=== PATIENT | female | born 1970 | race Caucasian/White ===

== ENCOUNTER 2020-03-07 10:32 | Emergency (ER) | payer SELFPAY ==
[2020-03-07] MEDS ORDERED: HYDROCODONE/APAP 10/325 TAB ONE (11:04)
--- NOTE | 2020-03-07 11:50 | RAD REPORT ---
EXAM DESCRIPTION: RAD - Forearm Left - 03/07/2020 11:40 am CLINICAL HISTORY: Left forearm pain status post injury FINDINGS: A mildly displaced distal radial fracture. Avulsion fracture ulnar styloid process No dislocation
--- NOTE | 2020-03-07 11:51 | RAD REPORT ---
EXAM DESCRIPTION: RAD -Hand Left 3 View - 03/07/2020 11:40 am CLINICAL HISTORY: Left hand pain status post injury FINDINGS: A mildly displaced distal radial fracture. Avulsion fracture ulnar styloid process No dislocation
[2020-03-07] MEDS ORDERED: FENTANYL CITR 100 MCG/2 ML ONE ×2 (13:11→13:14)
[2020-03-07 13:50] VITALS: BP 198/98; O2SAT 99
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
== END 2020-03-07 13:35 | disposition home or self-care (01) ==
LOC: ER 10:32
PROC: 2W3DX1Z Immobilization of Left Lower Arm using Splint (ICD-10-PCS; principal; 2020-03-07)
DX: S52.612A Displaced fracture of left ulna styloid process, initial encounter for closed fracture (principal); S52.502A Unspecified fracture of the lower end of left radius, initial encounter for closed fracture; W19.XXXA Unspecified fall, initial encounter; Y93.9 Activity, unspecified; Y92.89 Other specified places as the place of occurrence of the external cause; Z88.6 Allergy status to analgesic agent; F17.210 Nicotine dependence, cigarettes, uncomplicated
CPT/HCPCS: 96372; 99284; J3010

== ENCOUNTER 2023-09-22 04:45 | Inpatient (IN) | payer SELFPAY ==
--- OUTSIDE RECORDS SUMMARY | 2023-09-22 04:48 | XMS REPORT | Continuity of Care Document ---
Author Name Unknown Address [address] [place] [address] [address] [employer] Address [address] [place] [address] 1 [address] [place] [address] Care Team Providers Care Jr. Java Developer Name Role Phone Unavailable Unavailable Unavailable Encounters Start Date/Time End Date/Time Encounter Type Admission Type Attending Clinicians Care Facility Care Department Encounter ID Source 2023-08-09 12:53:09 2023-08-09 12:53:09 Outpatient [facility] [id number] Jonathan Rae 2023-06-19 10:14:18 2023-06-19 10:14:18 Outpatient [facility] [id number] Jonathan Rae
[2023-09-22] MEDS ORDERED: MAGNESIUM SULFATE 1 gm IVPB 1 GM/100 ML BAG IV ONE (04:58)
[2023-09-22] MEDS ORDERED: LEVALBUTEROL 1.25 MG/3 ML NEB ONE (04:58)
[2023-09-22] MEDS ORDERED: IPRATROPIUM BROM 0.5MG/2.5ML ONE (04:58)
[2023-09-22] MEDS ORDERED: METHYLPREDNISOLONE 125 MG INJ ONE (04:58)
[2023-09-22 05:40] LABS: Absolute Lymphocytes (CBC) 1.7 K/uL (0.7-4.9); Hematocrit 58.3 % (36.0-45.0); Lymphocytes % 19.4 % (15.3-44.8); MCV 112.7 fL (80-100); MPV 7.8 fL (7.6-11.3); Platelets 187 thou/uL (152-406); RBC Red Blood Cell Count 5.17 M/uL (3.86-4.86)
[2023-09-22 05:41] LABS: SARS-CoV-2 Antigen Rapid Res Negative (Negative)
[2023-09-22 05:44] LABS: Protime INR 0.87
[2023-09-22 05:48] LABS: Albumin 3.7 g/dL (3.4-5.0); Bilirubin Direct 0.3 mg/dL (0-0.2); Bilirubin Indirect, Calculated 0.4 mg/dL (0.2-0.8); Bilirubin Total 0.7 mg/dL (0.2-1.0); Magnesium 1.7 mg/dL (1.6-2.4); Potassium 3.8 mEq/L (3.5-5.1); Protein, Total 7.8 g/dL (6.4-8.2); Troponin High Sensitivity 31.3 pg/mL (<58.9)
[2023-09-22] MEDS ORDERED: AZITHROMYCIN 500 MG INJ IVPB ONE (06:48)
[2023-09-22] MEDS ORDERED: NA CHLORIDE 0.9% 250 ML ONE (06:48)
--- NOTE | 2023-09-22 06:48 | EDPHYS ---
Physician Documentation [facility] Name: Kelsea Petty Age: 52 yrs Sex: Female : 1970 Arrival Date: 09/22/2023 Time: 04:45 Bed 8 Private MD: ED Physician Reynold Armendariz HPI: 09/22 05:14 This 52 yrs old Female presents to ER via EMS with complaints of sob. rn 05:14 The patient has shortness of breath at rest, with light activity. Onset: The rn symptoms/episode began/occurred 1 week(s) ago. Duration: The symptoms are intermittent. The patient's shortness of breath is aggravated by coughing, exertion, light activity, is alleviated by nebulizer treatment. Associated signs and symptoms: Pertinent positives: non-productive cough, Pertinent negatives: chest pain, fever, hemoptysis. Severity of symptoms: At their worst the symptoms were moderate in the emergency department the symptoms have improved. The patient has experienced similar episodes in the past. Patient reports has COPD, worsening breathing over the last week, improves with nebulizer treatment but has to use it every 4 hours. No fever. Positive cough. No trauma. No chest pain.. 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 - Social history:: Smoking status: Patient reports the use of cigarette tobacco products, smokes one pack cigarettes per day. - Family history:: not pertinent. - Hospitalizations: : No recent hospitalization is reported. ROS: 05:14 Constitutional: Negative for fever, chills, and weight loss, Cardiovascular: Negative rn for chest pain, palpitations, and edema, Respiratory: Positive for shortness of breath and cough Abdomen/GI: Negative for abdominal pain, nausea, vomiting, diarrhea, and constipation, MS/Extremity: Negative for injury and deformity, Skin: Negative for injury, rash, and discoloration, Neuro: Negative for headache, weakness, numbness, tingling, and seizure, Exam: 05:14 Constitutional: This is a well developed, well nourished patient who is awake, alert, rn tripod position, mild tachypnea Head/Face: Normocephalic, atraumatic. ENT: Dry mucous membranes no stridor Respiratory: Poor inspiratory air movement, faint expiratory wheezing MS/ Extremity: Pulses equal, no cyanosis. Neurovascular intact. Full, normal range of motion. Equal circumference. Neuro: Awake and alert, GCS 15 06:05 ECG was reviewed by the Attending Physician. rn Vital Signs: 04:50 BP 178 / 106; Pulse 117; Resp 25 S; Temp 98; Pulse Ox 64% on R/A; Weight 55.34 kg (R); as6 Height 5 ft. 3 in. (R); Pain 0/10; 05:00 BP 155 / 97; Pulse 90; Resp 16; Pulse Ox 95% on 6 lpm NC; km8 05:45 BP 122 / 80; Pulse 92; Pulse Ox 99% on 4 lpm NC; km8 06:08 BP 140 / 84; Pulse 97; Resp 24; Pulse Ox 95% on 2 lpm NC; km8 06:30 BP 135 / 88; Pulse 95; Resp 13; Pulse Ox 96% on 2 lpm NC; km8 06:56 BP 115 / 67; Pulse 101; Resp 18; Pulse Ox 95% ; rv 04:50 Body Mass Index 21.61 (55.34 kg, 160.02 cm) as6 04:50 Pain Scale: Adult as6 Judith Coma Score: 06:56 Eye Response: spontaneous(4). Motor Response: obeys commands(6). Verbal Response: rv oriented(5). Total: 15. MDM: 04:48 Patient medically screened. rn 06:47 Differential diagnosis: Anxiety Reaction Bronchitis Chronic Obstructive Pulmonary rn Disease Myocardial Infarction pneumonia, Pneumothorax pulmonary edema, Pulmonary Embolism reactive airway disease. Data reviewed: vital signs, nurses notes, lab test result(s), EKG, radiologic studies, CT scan, plain films, and as a result, I will admit patient. Consideration of Admission/Observation Patient was admitted/placed on observation. Escalation of care including admission/observation considered. Counseling: I had a detailed discussion with the patient and/or guardian regarding the historical points, exam findings, and any diagnostic results supporting the discharge/admit diagnosis, lab results, radiology results, the need for further work-up and treatment in the hospital. Response to treatment: the patient's symptoms have markedly improved after treatment, and as a result, I will admit patient. 09/22 04:49 Order name: BMP; Complete Time: 06:18 rn 09/22 04:49 Order name: Blood Culture Adult (2) rn 09/22 04:49 Order name: CBC with Diff; Complete Time: 08:35 rn 09/22 04:49 Order name: Hepatic Function; Complete Time: 06:18 rn 09/22 04:49 Order name: Magnesium; Complete Time: 06:18 rn 09/22 04:49 Order name: NT PRO-BNP; Complete Time: 06:18 rn 09/22 04:49 Order name: PT-INR; Complete Time: 06:18 rn 09/22 04:49 Order name: Ptt, Activated; Complete Time: 06:18 rn 09/22 04:49 Order name: Troponin HS; Complete Time: 06:18 rn 09/22 04:49 Order name: Flu; Complete Time: 06:18 rn 09/22 04:49 Order name: SARS RAPID; Complete Time: 06:18 rn 09/22 05:45 Order name: CBC Smear Scan; Complete Time: 08:35 EDMS 09/22 04:49 Order name: CT Chest For PE Angio rn 09/22 04:49 Order name: XRAY CXR (1 view) rn 09/22 04:49 Order name: EKG; Complete Time: 04:50 rn 09/22 04:49 Order name: Cardiac monitoring; Complete Time: 04:51 rn 09/22 04:49 Order name: EKG - Nurse/Tech; Complete Time: 05:00 rn 09/22 04:49 Order name: IV Saline Lock; Complete Time: 05:00 rn 09/22 04:49 Order name: Labs collected and sent; Complete Time: 05:00 rn 09/22 04:49 Order name: O2 Per Protocol; Complete Time: 04:51 rn 09/22 04:49 Order name: O2 Sat Monitoring; Complete Time: 04:51 rn EC:05 Rate is 93 beats/min. Rhythm is regular. QRS [place] is Normal. MI interval is normal. QRS rn interval is normal. QT interval is prolonged at 492 msec. No Q waves. T waves are Normal. No ST changes noted. Clinical impression: NSR w/ Non-specific ST/T Changes. Interpreted by me. Reviewed by me. Administered Medications: 05:15 Drug: MethylPrednisoLONE IVP 125 mg IVP once Route: IVP; Site: right forearm; rv 06:20 Follow up: Response: No adverse reaction [facility] 05:15 Drug: Levalbuterol Inhalation 1.25 mg Inhalation once Route: Inhalation; rv 06:19 Follow up: Response: No adverse reaction km8 05:15 Drug: Ipratropium Inhalation Aerosol 0.5 mg Inhalation once Route: Inhalation; rv 06:19 Follow up: Response: No adverse reaction 8 05:15 Drug: Magnesium Sulfate IVPB 1 grams IVPB once over 1 hrs Route: IVPB; Infused Over: 1 rv hrs; Site: right forearm; 06:19 Follow up: IV Status: Completed infusion km 06:51 Drug: Zithromax IVPB 500 mg IVPB once over 1 hrs; mix in 250 mL NS Route: IVPB; Infused rv Over: 1 hrs; Site: right forearm; Disposition: 06:47 Critical Care:. rn Disposition Summary: 09/22/23 06:48 Hospitalization Ordered Notes: Hospitalization Status: Inpatient Admission rn Provider: Florentino Beltran rn Condition: Stable rn Problem: an acute exacerbation rn Symptoms: have improved rn Bed/Room Type: Standard rn Location: Telemetry/MedSurg (Inpatient)(09/22/23 14:17) eb Room Assignment: [facility](09/22/23 14:17) Diagnosis - COPD/ Chronic obstructive pulmonary disease with (acute) exacerbation rn - Hypoxemia rn Forms: - Medication Reconciliation Form rn - SBAR form rn - Leadership Thank You Letter rn patient services time excluding procedures: 06:47 Critical care time: Bedside Care: 30 minutes, Consultation: 5 minutes. Total time: 35 rn minutes Signatures: Dispatcher [employer] Reynold Dexter MD MD rn Attema, Lee, PROFESSIONAL ARCHITECT-C PROFESSIONAL ARCHITECT-Cla1 Jonna Ribeiro Ronaldo RN RN Ty Chaudhry RN RN Nicole Leblanc RN km8 Corrections: (The following items were deleted from the chart) 10:21 06:48 Telemetry/MedSurg (Inpatient) rn eb 10: 06:48 rn eb 14:17 10:21 [facility] ER HOLD eb eb 14:17 10:21 ERHOLD- eb eb
--- NOTE | 2023-09-22 06:48 | ER ---
Nurse's Notes [facility] Name: Kelsea Petty Age: 52 yrs Sex: Female : 1970 Arrival Date: 09/22/2023 Time: 04:45 Bed 8 Private MD: Diagnosis: COPD/ Chronic obstructive pulmonary disease with (acute) exacerbation;Hypoxemia Presentation: 09/22 04:50 Acuity: KULWINDER 1 as6 04:50 Chief complaint: EMS states: called out for difficulty breathing. at time time triage as6 pt is in tripod position, labored breathing. Coronavirus screen: At this time, the client does not indicate any symptoms associated with coronavirus-19. Ebola Screen: No symptoms or risks identified at this time. Initial Sepsis Screen: Does the patient meet any 2 criteria? No. Patient's initial sepsis screen is negative. Does the patient have a suspected source of infection? No. Patient's initial sepsis screen is negative. Risk Assessment: Do you want to hurt yourself or someone else? Patient reports no desire to harm self or others. Onset of symptoms was September 22, 2023 at 03:30. 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 - Social history:: Smoking status: Patient reports the use of cigarette tobacco products, smokes one pack cigarettes per day. - Family history:: not pertinent. - Hospitalizations: : No recent hospitalization is reported. Screenin:01 [facility] ED Fall Risk Assessment (Adult) History of falling in the last 3 months, rv including since admission No falls in past 3 months (0 pts) Score/Fall Risk Level 0 - 2 = Low Risk Oriented to surroundings, Maintained a safe environment, Educated pt \T\ family on fall prevention, incl call for assistance when getting out of bed, Assessed \T\ reinforced patient's understanding of fall precautions. Abuse screen: Denies threats or abuse. Denies injuries from another. Nutritional screening: No deficits noted. Tuberculosis screening: No symptoms or risk factors identified. Assessment: 05:00 General: Appears uncomfortable, Behavior is calm, cooperative. Pain: Denies pain. rv Neuro: Level of Consciousness is awake, alert, obeys commands, Oriented to person, place, time, situation. Cardiovascular: Capillary refill < 3 seconds Patient's skin is warm and dry. Respiratory: Respiratory effort is labored, Respiratory pattern is tachypnea Breath sounds with wheezes bilaterally. GI: No signs and/or symptoms were reported involving the gastrointestinal system. : No signs and/or symptoms were reported regarding the genitourinary system. Derm: Skin is intact. 06:00 Reassessment: Patient appears in no apparent distress at this time. Patient and/or km8 family updated on plan of care and expected duration. Pain level reassessed. Patient is alert, oriented x 3, equal unlabored respirations, skin warm/dry/pink. Patient states symptoms have improved. 06:56 Reassessment: Patient appears in no apparent distress at this time. Patient and/or rv family updated on plan of care and expected duration. Pain level reassessed. Patient is alert, oriented x 3, equal unlabored respirations, skin warm/dry/pink. Patient states symptoms have improved. 14:35 Reassessment: Keerthi will call back , she is discharging a pt at this time. iw Vital Signs: 04:50 BP 178 / 106; Pulse 117; Resp 25 S; Temp 98; Pulse Ox 64% on R/A; Weight 55.34 kg (R); as6 Height 5 ft. 3 in. (R); Pain 0/10; 05:00 BP 155 / 97; Pulse 90; Resp 16; Pulse Ox 95% on 6 lpm NC; km8 05:45 BP 122 / 80; Pulse 92; Pulse Ox 99% on 4 lpm NC; km8 06:08 BP 140 / 84; Pulse 97; Resp 24; Pulse Ox 95% on 2 lpm NC; km8 06:30 BP 135 / 88; Pulse 95; Resp 13; Pulse Ox 96% on 2 lpm NC; km8 06:56 BP 115 / 67; Pulse 101; Resp 18; Pulse Ox 95% ; rv 04:50 Body Mass Index 21.61 (55.34 kg, 160.02 cm) as6 04:50 Pain Scale: Adult as6 [place] Coma Score: 06:56 Eye Response: spontaneous(4). Motor Response: obeys commands(6). Verbal Response: rv oriented(5). Total: 15. ED Course: 04:46 Patient arrived in ED. rv1 04:48 Reynold Armendariz MD is Attending Physician. rn 05:01 Patient has correct armband on for positive identification. Client placed on continuous rv cardiac and pulse oximetry monitoring. NIBP monitoring applied. gambling monitor on. 05:01 No provider procedures requiring assistance completed. rv 05:08 Arm band placed on. as6 05:08 Inserted saline lock: 18 gauge in right forearm, using aseptic technique. Blood as6 collected. 05:12 Triage completed. as6 05:14 Timothy Morton, RN is Primary Nurse. rv 05:34 XRAY CXR (1 view) In Process Unspecified. EDMS 06:18 CT Chest For PE Angio In Process Unspecified. EDMS 06:47 Florentino Beltran is Hospitalizing Provider. rn Administered Medications: 05:15 Drug: MethylPrednisoLONE IVP 125 mg IVP once Route: IVP; Site: right forearm; rv 06:20 Follow up: Response: No adverse reaction km8 05:15 Drug: Levalbuterol Inhalation 1.25 mg Inhalation once Route: Inhalation; rv 06:19 Follow up: Response: No adverse reaction km8 05:15 Drug: Ipratropium Inhalation Aerosol 0.5 mg Inhalation once Route: Inhalation; rv 06:19 Follow up: Response: No adverse reaction km8 05:15 Drug: Magnesium Sulfate IVPB 1 grams IVPB once over 1 hrs Route: IVPB; Infused Over: 1 rv hrs; Site: right forearm; 06:19 Follow up: IV Status: Completed infusion km8 06:51 Drug: Zithromax IVPB 500 mg IVPB once over 1 hrs; mix in 250 mL NS Route: IVPB; Infused rv Over: 1 hrs; Site: right forearm; Medication: 05:01 VIS not applicable for this client. rv Outcome: 06:48 Decision to Hospitalize by Provider. rn 15:36 Patient left the ED. iw Signatures: Dispatcher [employer] EDMS Padmini Livingston RN RN iw Reynold Armendariz MD MD rn Vicente, Ronaldo, Ty Mcdowell RN, RN RN as6 Kiana Dozier rv1 Nicole Car, RN RN km8
[2023-09-22 07:11] LABS: Blood Morphology Comment NOTED (NOT SEEN); Macrocytosis 1+; Platelet Estimate ADEQ; White Blood Cell Scan OK (OK)
[2023-09-22] MEDS ORDERED: ONDANSETRON 4 MG/2 ML VIAL IV PRN (07:28)
[2023-09-22 07:37] VITALS: BMI 21.6
[2023-09-22] MEDS ORDERED: METHYLPREDNISOLONE 40 MG INJ ONE (08:40)
[2023-09-22] MEDS ORDERED: ENOXAPARIN 40 MG/0.4 ML SQ ONE (08:41)
[2023-09-22] MEDS ORDERED: NA CHLORIDE 0.9% 1,000 ML ONE (08:41)
[2023-09-22] MEDS: METHYLPREDNISOLONE 40 MG INJ IV SCH ×2 (09:00→16:05)
[2023-09-22] MEDS: ENOXAPARIN 40 MG/0.4 ML SQ SCH (09:00)
[2023-09-22] MEDS: NA CHLORIDE 0.9% 1,000 ML IV SCH ×2 (09:25→22:15)
[2023-09-22] MEDS: DULERA 200/5 (MOMETASONE/FORMOTEROL) INHALER IH SCH ×2 (10:00→22:12)
--- NOTE | 2023-09-22 10:13 | P.HP ---
Certification for Inpatient Patient admitted to: Inpatient With expected LOS: >2 Midnights Patient will require the following post-hospital care: None Practitioner: I am a practitioner with admitting privileges, knowledge of patient current condition, hospital course, and medical plan of care. Services: Services provided to patient in accordance with Admission requirements found in Title 42 Section 412.3 of the Code of Federal Regulations Patient History Date of Service: 09/22/23 Reason for admission: COPD exacerbation History of Present Illness: 52-year-old female with history of COPD, hypertension presents the emergency department with chief complaint of shortness of breath. She reports increasing shortness of breath over the course of the last 1 week with productive coughclear sputum. She was evaluated in the emergency department found to be hypoxic on room air to 64%, her labs were significant for hemoglobin 19.3 hematocrit 58.3 bicarb 34 creatinine 1.03 COVID negative, influenza negative, CT of the chest negative for pulmonary embolism. Symptoms improving with nebs, IV steroids but needing supplemental oxygen to maintain saturations greater than 90%. Will need to be admitted for acute hypoxic respite failure secondary to COPD exacerbation. Allergies aspirin Allergy (Intermediate, Verified 12/11/12 16:34) vomiting - Past Medical/Surgical History -: COPD -: Hypertension -: -: Hysterectomy Psychosocial/ Personal History: Lives at home with family - Family History Family History: Reviewed- Non-Contributory - Social History Smoking Status: Current every day smoker Counseled patient to stop smoking for: less than 10 minutes Alcohol use: Yes CD- Drugs: No Caffeine use: Yes Place of Residence: Home Review of Systems 10-point ROS is otherwise unremarkable Respiratory: Cough, Shortness of Breath, Sputum, Wheezing Physical Examination - Vital Signs Temperature: 97.8 F Blood Pressure: 113/70 Pulse: 89 Respirations: 20 Pulse Ox (%): 91 - Physical Exam General: Alert, In no apparent distress, Oriented x3 HEENT: Atraumatic, PERRLA Neck: Supple, No LAD Respiratory: Expiratory wheezes (mild) Cardiovascular: Regular rate/rhythm, Normal S1 S2 Gastrointestinal: Normal bowel sounds Musculoskeletal: No tenderness Integumentary: No rashes Neurological: Normal speech, Normal strength at 5/5 x4 extr, Normal tone, Normal affect - Studies Laboratory Data (last 24 hrs) 09/22/23 09/22/23 09/22/23 05:05 05:05 05:05 WBC 8.80 Hgb 19.3 H Hct 58.3 H Plt Count 187 PT 9.6 INR 0.87 APTT 30.9 Sodium 138 Potassium 3.8 BUN 20 H Creatinine 1.03 H Glucose 102 Magnesium 1.7 Total Bilirubin 0.7 AST 78 H ALT 47 Alkaline Phosphatase 143 H Microbiology Data (last 24 hrs): 09/22/23 04:58 Nasopharnyx Influenza Type A Antigen Screen - Final 09/22/23 04:58 Nasopharnyx Influenza Type B Antigen Screen - Final Assessment and Plan - Plan Assessment: Acute hypoxic respiratory failure secondary to COPD exacerbation Hypertension Tobacco use disorder Plan: Acute hypoxic respiratory failure secondary to COPD exacerbation CTA negative for PE continue nebs, steroids, ICS, antitussives Wean off of oxygen Does not use home 02 Hypertension Continue home blood pressure medications Tobacco use disorder Counseled on need for cessation NicoDerm patch ordered DVT PPX: Lovenox Code status: Full Discharge Plan: Home Plan to discharge in: 48 Hours - Advance Directives Does patient have a Living Will: No Does patient have a Durable POA for Healthcare: No - Code Status/Comfort Care Code Status Assessed: Yes (Full) Critical Care: No Time Spent Managing Pts Care (In Minutes): 70
[2023-09-22] MEDS ORDERED: BENZONATATE 100 MG CAP PO ONE (11:28)
[2023-09-22] MEDS: NICOTINE 14 MG/PAT TD SCH (11:30)
[2023-09-22] MEDS: BENZONATATE 100 MG CAP PO PRN ×2 (11:30→22:19)
[2023-09-22] MEDS: ALBUTEROL 2.5 MG/3 ML NEB SOL NEB PRN (19:15)
[2023-09-22] MEDS: IPRATROPIUM BROM 0.5MG/2.5ML NEB PRN (19:15)
[2023-09-22] MEDS ORDERED: MELATONIN 5 MG TABLET PO ONE (22:00)
[2023-09-23] MEDS: METHYLPREDNISOLONE 40 MG INJ IV SCH (01:02)
[2023-09-23] MEDS: ALBUTEROL 2.5 MG/3 ML NEB SOL NEB PRN ×3 (02:40→17:49)
[2023-09-23] MEDS: IPRATROPIUM BROM 0.5MG/2.5ML NEB PRN ×3 (02:40→17:49)
[2023-09-23 03:15] LABS: Absolute Lymphocytes (CBC) 0.8 K/uL (0.7-4.9); Hematocrit 53.3 % (36.0-45.0); MCV 112.9 fL (80-100); MPV 8.1 fL (7.6-11.3); Platelets 178 thou/uL (152-406); RBC Red Blood Cell Count 4.72 M/uL (3.86-4.86)
[2023-09-23 03:33] LABS: Albumin 3.2 g/dL (3.4-5.0); Bilirubin Total 0.6 mg/dL (0.2-1.0); Potassium 3.7 mEq/L (3.5-5.1); Protein, Total 6.2 g/dL (6.4-8.2)
[2023-09-23] MEDS ORDERED: POTASSIUM CL SA 10 MEQ TAB PO ONE (07:30)
[2023-09-23] MEDS: predniSONE 20 MG TAB PO SCH ×2 (09:26→20:39)
[2023-09-23] MEDS: DULERA 200/5 (MOMETASONE/FORMOTEROL) INHALER IH SCH ×2 (09:26→20:00)
[2023-09-23] MEDS: ENOXAPARIN 40 MG/0.4 ML SQ SCH (09:27)
[2023-09-23] MEDS: NICOTINE 14 MG/PAT TD SCH (09:27)
--- NOTE | 2023-09-23 13:40 | P.PN ---
Date of Service: 09/23/23 Subjective: Stable overnight, still requiring nasal cannula oxygen Still reporting cough, mild shortness of breath ROS: 10 point ROS as noted above, otherwise negative Physical exam GEN: Alert, oriented, NAD HEENT: Normal conjunctiva, sclera anicteric CV: Regular rate and rhythm, no edema Pulm: Nonlabored respirations on nasal cannula4 L, mild expiratory wheezing ABD: Soft, nontender, nondistended MSK: No joint tenderness Integumentary: No rashes Neuro: Normal speech, normal affect Vitals reviewed Problem List Assessment: Acute hypoxic respiratory failure secondary to COPD exacerbation Hypertension Tobacco use disorder Right renal mass Plan: Acute hypoxic respiratory failure secondary to COPD exacerbation CTA negative for PE continue nebs, steroids, ICS, antitussives Wean off of oxygen-still needing 4 L nasal cannula Room air sats performed today 80% on room air Does not use home 02 Continue treatment for COPD exacerbation, continue to wean O2 Hypertension Continue home blood pressure medications Tobacco use disorder Counseled on need for cessation NicoDerm patch ordered Right renal mass Incidental finding on CT, partially imaged Renal ultrasound ordered Reports history of ovarian cancerstage IV in the past Follow-up ultrasound report DVT PPX: Lovenox Code status: Full Disposition 2- 3 days once weaned off of oxygen Time Spent Managing Pts Care (In Minutes): 35
[2023-09-23] MEDS: BENZONATATE 100 MG CAP PO PRN ×2 (14:22→20:43)
--- NOTE | 2023-09-23 14:28 | RAD REPORT ---
EXAM DESCRIPTION: US - Renal Ultrasound-Complete - 09/23/2023 11:30 am CLINICAL HISTORY: ABN CT, right renal mass COMPARISON: Chest For Pe Angio dated 09/22/2023 TECHNIQUE: Sonographic grayscale and color flow images of the kidneys and bladder were obtained. FINDINGS: Both kidneys are normal in size, and echotexture with normal corticomedullary differentiat ion. The well-circumscribed solid right upper renal pole cortical slightly exophytic rounded mass with alvarez rly homogeneous isoechoic to mildly hypoechoic texture, measuring 2.2 cm in greatest dimension. The right kidney measures 10.6 cm in length. No hydronephrosis, focal mass, or echogenic calculi. The left kidney measures 10.1 cm in length. No hydronephrosis, focal mass, or echogenic calculi. The urinary bladder is somewhat decompressed limiting evaluation, without gross abnormality seen. IMPRESSION: Solid right upper pole 2.2 cm well-circumscribed mass as above. This raises concern for malignancy until proven otherwise. Additional evaluation by renal mass protocol CT or MRI would provi de improved imaging characterization if clinically indicated.
[2023-09-23] MEDS: PANTOPRAZOLE 40MG TABLET PO SCH (15:56)
[2023-09-23] MEDS: ACETAMINOPHEN 325 MG TABLET PO PRN (22:54)
[2023-09-24 03:46] LABS: Absolute Lymphocytes (CBC) 0.9 K/uL (0.7-4.9); Hematocrit 53.6 % (36.0-45.0); Lymphocytes % 9.6 % (15.3-44.8); MPV 8.3 fL (7.6-11.3); Platelets 179 thou/uL (152-406); RBC Red Blood Cell Count 4.73 M/uL (3.86-4.86)
[2023-09-24 03:59] LABS: Albumin 3.2 g/dL (3.4-5.0); Bilirubin Total 0.7 mg/dL (0.2-1.0); Potassium 3.8 mEq/L (3.5-5.1); Protein, Total 6.1 g/dL (6.4-8.2)
[2023-09-24 04:07] LABS: MCV 113.2 fL (80-100)
[2023-09-24] MEDS: BENZONATATE 100 MG CAP PO PRN ×2 (05:51→21:50)
[2023-09-24] MEDS: ACETAMINOPHEN 325 MG TABLET PO PRN ×2 (05:51→21:50)
[2023-09-24] MEDS: PANTOPRAZOLE 40MG TABLET PO SCH (05:51)
--- NOTE | 2023-09-24 08:19 | P.PN ---
Date of Service: 09/24/23 Subjective: Stable overnight, still requiring nasal cannula oxygen Still reporting cough, mild shortness of breath ROS: 10 point ROS as noted above, otherwise negative Physical exam GEN: Alert, oriented, NAD HEENT: Normal conjunctiva, sclera anicteric CV: Regular rate and rhythm, no edema Pulm: Nonlabored respirations on nasal cannula4 L, mild expiratory wheezing ABD: Soft, nontender, nondistended MSK: No joint tenderness Integumentary: No rashes Neuro: Normal speech, normal affect Vitals reviewed Problem List Assessment: Acute hypoxic respiratory failure secondary to COPD exacerbation Hypertension Tobacco use disorder Right renal mass Plan: Acute hypoxic respiratory failure secondary to COPD exacerbation CTA negative for PE continue nebs, steroids, ICS, antitussives Wean off of oxygen-still needing 4 L nasal cannula Room air sats performed 09/23 80% on room air Does not use home 02 Continue treatment for COPD exacerbation, continue to wean O2 will need to wean off 02 prior to DC Hypertension Continue home blood pressure medications Tobacco use disorder Counseled on need for cessation NicoDerm patch ordered Right renal mass Incidental finding on CT, partially imaged Renal ultrasound performed 09/23 shows solid right upper pole 2.2 cm well- circumscribed mass raising interim for malignancy. Recommend renal mass protocol CT or MRI Discussed results at length with patient as well as need to close outpatient evaluation DVT PPX: Lovenox Code status: Full Disposition 1-2 days once weaned off of oxygen Time Spent Managing Pts Care (In Minutes): 35
[2023-09-24] MEDS: NICOTINE 14 MG/PAT TD SCH (08:20)
[2023-09-24] MEDS: ENOXAPARIN 40 MG/0.4 ML SQ SCH (08:20)
[2023-09-24] MEDS: predniSONE 20 MG TAB PO SCH ×2 (08:20→21:44)
[2023-09-24] MEDS: DULERA 200/5 (MOMETASONE/FORMOTEROL) INHALER IH SCH ×2 (08:21→21:46)
[2023-09-24] MEDS: ALBUTEROL 2.5 MG/3 ML NEB SOL NEB PRN ×3 (08:40→19:39)
[2023-09-24] MEDS: IPRATROPIUM BROM 0.5MG/2.5ML NEB PRN ×3 (08:40→19:39)
[2023-09-24] MEDS ORDERED: POTASSIUM CL SA 10 MEQ TAB PO ONE (09:00)
--- NOTE | 2023-09-24 10:46 | RAD REPORT ---
EXAM DESCRIPTION: CT Angiography Chest With Intravenous Contrast CLINICAL HISTORY: The patient is 52 years old and is Female; DYSPNEA TECHNIQUE: Axial computed tomographic angiography images of the chest with intravenous contrast. S agittal and coronal reformatted images were created and reviewed. This CT exam was performed using one or more of the following dose reduction techniques: automated exposure control, adjustment of t he mA and/or kV according to patient size, and/or use of iterative reconstruction technique. MIP re constructed images were created and reviewed. COMPARISON: No relevant prior studies available. FINDINGS: Pulmonary arteries: Unremarkable. No pulmonary embolism. Aorta: No acute findings. No thoracic aortic aneurysm. Lungs: Emphysematous changes in the lungs bilaterally. No mass. No consolidation. Pleural space: Unremarkable. No significant effusion. No pneumothorax. Heart: Coronary artery calcification. No cardiomegaly. No significant pericardial effusion. No evidence of RV dysfunction. Bones/joints: No acute fracture. No dislocation. Soft tissues: Unremarkable. Lymph nodes: Unremarkable. No enlarged lymph nodes. Kidneys and ureters: Suggestion of an approximately 2 cm partially visualized heterogeneous mass in the upper right kidney. IMPRESSION: 1. Emphysematous changes in the lungs bilaterally. 2. No evidence of pulmonary embolism. 3. Suggestion of an approximately 2 cm partially visualized heterogeneous mass in the upper right k idney. Electronically signed by: Chivo Mendez MD 09/22/2023 06:51 AM CANDY DEPARTMENT MANAGER Due to temporary technical issues with the PACS/Fluency reporting system, reports are being signed by the in house radiologists without review as a courtesy to insure prompt reporting. The interpreting radiologist is fully responsible for the content of the report.
--- NOTE | 2023-09-24 11:09 | RAD REPORT ---
XR Chest, 1 View CLINICAL HISTORY: The patient is 52 years old and is Female; DYSPNEA TECHNIQUE: Frontal view of the chest. COMPARISON: No relevant prior studies available. FINDINGS: Lungs: Mildly prominent interstitial markings. No consolidation. Pleural space: Blunting of the costophrenic angles suggestive of bilateral pleural effusions. No pneumothorax. Heart: Unremarkable. Mediastinum: Unremarkable. Normal mediastinal contour. Bones/joints: No acute findings. IMPRESSION: 1. Mildly prominent interstitial markings. No consolidation. 2. Blunting of the costophrenic angles suggestive of bilateral pleural effusions. Electronically signed by: Chivo Mendez MD 09/22/2023 06:09 AM TRENCH PIPE LAYER Due to temporary technical issues with the PACS/Fluency reporting system, reports are being signed by the in house radiologists without review as a courtesy to insure prompt reporting. The interpreting radiologist is fully responsible for the content of the report.
--- NOTE | 2023-09-24 12:31 | EKG ---
Test Date: 2023-09-22 Test Time: 05:14:03 Engineering Drafter: STEVIE MEASUREMENT RESULTS: Intervals: Rate: 93 MT: 142 QRSD: 88 QT: 396 QTc: 492 [place]: P: 83 MT: 142 QRS: 81 T: 64 INTERPRETIVE STATEMENTS: Normal sinus rhythm Prolonged QT Abnormal ECG No previous ECG available for comparison Electronically Signed On 09-24-23 12:27:06 PHYTOCHEMISTRY PROFESSOR by Chacorta Hahn
[2023-09-24] MEDS ORDERED: PANTOPRAZOLE 40MG TABLET PO SCH (15:30)
[2023-09-25] MEDS: IPRATROPIUM BROM 0.5MG/2.5ML NEB PRN ×2 (01:30→07:42)
[2023-09-25] MEDS: ALBUTEROL 2.5 MG/3 ML NEB SOL NEB PRN ×2 (01:30→07:42)
[2023-09-25 02:49] LABS: Absolute Lymphocytes (CBC) 1.1 K/uL (0.7-4.9); Hematocrit 56.5 % (36.0-45.0); Lymphocytes % 12.6 % (15.3-44.8); MPV 8.4 fL (7.6-11.3); Platelets 187 thou/uL (152-406); RBC Red Blood Cell Count 5.02 M/uL (3.86-4.86)
[2023-09-25 02:51] LABS: MCV 112.6 fL (80-100)
[2023-09-25 03:12] LABS: Albumin 3.4 g/dL (3.4-5.0); Bilirubin Total 0.9 mg/dL (0.2-1.0); Potassium 3.7 mEq/L (3.5-5.1); Protein, Total 6.7 g/dL (6.4-8.2)
[2023-09-25 04:47] VITALS: O2SAT 92
[2023-09-25] MEDS: PANTOPRAZOLE 40MG TABLET PO SCH (05:57)
[2023-09-25] MEDS: DULERA 200/5 (MOMETASONE/FORMOTEROL) INHALER IH SCH (08:00)
[2023-09-25 08:25] VITALS: BP 123/76; TEMP 97.9
[2023-09-25] MEDS ORDERED: ASPIRIN EC 81 MG TAB PO SCH (09:00)
[2023-09-25] MEDS ORDERED: POTASSIUM CL SA 10 MEQ TAB PO ONE (09:00)
[2023-09-25] MEDS ORDERED: ALBUTEROL INHALER 60 PUFF/8 GM IH SCH (09:20)
[2023-09-25] MEDS: predniSONE 20 MG TAB PO SCH (09:56)
[2023-09-25] MEDS: ENOXAPARIN 40 MG/0.4 ML SQ SCH (09:57)
[2023-09-25] MEDS: NICOTINE 14 MG/PAT TD SCH (09:57)
== END 2023-09-25 12:20 | disposition home or self-care (01) | DRG 190 ==
LOC: ER 04:45 → ERHOLD 07:11 → 2ND 15:16
PROVIDERS: ADMIT Internal Medicine; ATTEND Hospitalist
DX: J44.1 Chronic obstructive pulmonary disease with (acute) exacerbation (principal); J96.01 Acute respiratory failure with hypoxia; I10 Essential (primary) hypertension; N28.89 Other specified disorders of kidney and ureter; F17.210 Nicotine dependence, cigarettes, uncomplicated; Z71.6 Tobacco abuse counseling; Z85.43 Personal history of malignant neoplasm of ovary; Z11.52 Encounter for screening for COVID-19; Z90.710 Acquired absence of both cervix and uterus
CPT/HCPCS: 36415; 71045; 71275; 76770; 80048; 80053; 80076; 83735; 83880; 84484; 85025; 85610; 85730; 87040; 87804; 87811; 93005; 94640; 96365; 96375; 99285; J1650; J2920; J2930; J3475; J3535; J7030; J7050; J7512; J7613; J7614; J7644; Q9967

== ENCOUNTER 2024-08-05 20:38 | Inpatient (IN) | payer SELFPAY ==
--- OUTSIDE RECORDS SUMMARY | 2024-08-05 20:41 | XMS REPORT | Continuity of Care Document ---
Author Name Unknown Address [address] [facility] [address] [facility] Address [address] [facility] 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 Ordering Clinician Indication Dosage Frequency Signature (SIG) Comments Components Source losartan 50 mg-hydrochl orothiazide 12.5 mg tablet 04-09 00:00: 00 Yes mg Jonathan Farshad Rae ipratropium bromide 0.02 % solution for inhalation 04-09 00:00: 00 Yes % Jonathan Rae Dulera 100 mcg-5 mcg/actuati on HFA aerosol inhaler 04-09 00:00: 00 Yes 2mcg/ac tuation Jonathanbilly Rae albuterol sulfate HFA 90 mcg/actuati on aerosol inhaler 04-02 00:00: 00 Yes mcg/act uation Jonathan Rae albuterol sulfate 2.5 mg/3 mL (0.083 %) solution for nebulizatio n 04-02 00:00: 00 Yes /3 mL (0.083 %) Jonathan Rae Dulera 100 mcg-5 mcg/actuati on HFA aerosol inhaler 03-06 00:00: 00 Yes 1mcg/ac tuation Jonathan Farshad Rae losartan 50 mg-hydrochl orothiazide 12.5 mg tablet 03-05 00:00: 00 Yes mg Jonathan Rae USE 1 UNIT DOSE IN NEBULIZER 4 TIMES DAILY 01-11 00:00: 00 Yes 2 Jonathan Rae TAKE 1 TABLET TWICE DAILY. 2022-10 00:00: 00 02-06 00:00 :00 No 20 Jonathan Rae INHALE 2 PUFFS, BY MOUTH, TWICE DAILY. 2022-10 00:00: 00 02-06 00:00 :00 No [id number] Jonathan Rae TAKE 1 CAPSULE 3 TIMES DAILY NEEDED. 2022-10 00:00: 00 02-06 00:00 :00 No 200 Jonathan Rae TAKE 1/2 TABLET BY MOUTH DAILY 2022-10 00:00: 00 02-06 00:00 :00 No 25 Jonathan Rae TAKE 1 TABLET BY MOUTH ONCE DAILY 2022-10 00:00: 00 02-06 00:00 :00 No [id number] Jonathan Rae TAKE 1 TABLET BY MOUTH ONCE DAILY 2022-10 00:00: 00 02-06 00:00 :00 No [id number] Jonathan Rae INHALE 1 TO 2 PUFFS EVERY 6 HOURS NEEDED. 2022-10 00:00: 00 02-06 00:00 :00 No [id number] Jonathan Rae TAKE 1 TABLET BY MOUTH ONCE DAILY 2022-10 00:00: 00 02-06 00:00 :00 No [id number] Jonathan Rae USE 1 UNIT DOSE EVERY 4-6 HOURS NEEDED FOR WHEEZING . 2022-10 00:00: 00 02-06 00:00 :00 No [id number] Jonathan Rae TAKE 1 TABLET DAILY DIRECTED. 2022-10 00:00: 00 02-06 00:00 :00 No 25 Jonathanbilly Rae USE 1 UNIT DOSE EVERY 4-6 HOURS NEEDED FOR WHEEZING . 2022-10 00:00: 00 02-06 00:00 :00 No [id number] Jonathanbilly Rae USE 1 UNIT DOSE IN NEBULIZER 4 TIMES DAILY 2022-10 00:00: 00 02-06 00:00 :00 No 2 Jonathan F Butch Vital Signs Vital Name Observation Time Observation Value Comments S quentince Height Measured 2024-04-09 17:13:00 Jonathan F Butch Body Temperature 2024-04-09 17:13:00 Jonathan F Butch Heart Rate 2024-04-09 17:13:00 Ivon en F Butch Respiratory Rate 2024-04-09 17:13:00 Jonathan F Butch BP Systolic 2024-04-09 17:13:00 Step hen F Butch BP Diastolic 2024-04-09 17:13:00 [place] phen F Butch Weight Measured 2024-04-09 17:13:00 Jonathan F Butch BP Systolic 2023-09-30 15:33:00 Step hen F Butch BP Diastolic 2023-09-30 15:33:00 [place] phen F Butch Weight Measured 2023-09-30 15:33:00 118.80 pounds Jonathan F Butch Height Measured 2023-09-30 15:33:00 46.46 inches Jonathan F Butch Body Temperature 2023-09-30 15:33:00 Jonathna F Butch Heart Rate 2023-09-30 15:33:00 Ivon en F Butch Respiratory Rate 2023-09-30 15:33:00 Jonathan F Butch BP Systolic 2023-08-09 12:53:00 Step hen F Butch BP Diastolic 2023-08-09 12:53:00 [place]arson phen F Butch Weight Measured 2023-08-09 12:53:00 Jonathan F Butch Height Measured 2023-08-09 12:53:00 Jonathan F Butch Body Temperature 2023-08-09 12:53:00 Jonathan F Butch Heart Rate 2023-08-09 12:53:00 Ivon en F Butch Respiratory Rate 2023-08-09 12:53:00 Jonathan F Butch BP Systolic 2023-06-19 10:37:00 202 mm[Hg] Step hen F Butch BP Diastolic 2023-06-19 10:37:00 118 mm[Hg] Karson phen F Butch Weight Measured 2023-06-19 10:37:00 118.80 pounds Jonathan F Butch Height Measured 2023-06-19 10:37:00 46.46 inches Jonathan F Butch Body Temperature 2023-06-19 10:37:00 98.30 degrees Jonathan Rae Heart Rate 2023-06-19 10:37:00 89.00 /min Ivon Rae Respiratory Rate 2023-06-19 10:37:00 18.00 /min Jonathan Rae Encounters Start Date/Time End Date/Time Encounter Type Admission Type Attending [facility] Care Department Encounter ID Source 2024-07-17 13:46:29 2024-07-17 13:46:29 Outpatient SFA SFA [id number] Jonathan Rae 2024-07-16 13:44:41 2024-07-16 13:44:41 Outpatient SFA [id number] [id number] Jonathan Rae 2024-06-27 16:51:10 2024-06-27 16:51:10 Outpatient SFA SFA [id number] Jonathan Rae 2024-06-27 00:00:00 2024-06-27 00:00:00 Outpatient Visit SFA [id number] Jonathan Rae 2024-04-09 15:57:28 2024-04-09 15:57:28 Outpatient SFA SFA [id number] Jonathan Rae 2024-04-09 00:00:00 2024-04-09 00:00:00 Outpatient Visit SFA [id number] Jonathan Rae 2023-08-09 12:53:09 2023-08-09 12:53:09 Outpatient SFA SFA [id number] Jonathan Rae 2023-06-19 10:14:18 2023-06-19 10:14:18 Outpatient SFA SFA [id number] Jonathan Rae Notes Date/Time Note Provider [facility]:[address] [facility]
[2024-08-05] MEDS ORDERED: CEFTRIAXONE 1000 MG/VIAL ONE (21:50)
[2024-08-05] MEDS ORDERED: IPRATROPIUM BROM 0.5MG/2.5ML ONE (21:51)
[2024-08-05] MEDS ORDERED: ALBUTEROL 2.5 MG/3 ML NEB SOL ONE (21:51)
[2024-08-05] MEDS ORDERED: METHYLPREDNISOLONE 125 MG INJ ONE (21:51)
[2024-08-05] MEDS ORDERED: NA CHLORIDE 0.9% 500 ML ONE ×2 (21:51→22:56)
[2024-08-05 22:01] LABS: Absolute Basophils 0.1 K/uL (0-0.5); Absolute Eosinophils 0.3 K/uL (0-0.5); Absolute Lymphocytes (CBC) 1.3 K/uL (0.7-4.9); Absolute Neutrophil 5.4 K/uL (1.8-8.0); Eosinophils % 3.3 % (0-4.4); Hematocrit 63.5 % (36.0-45.0); Hemoglobin 21.5 g/dL (12.0-15.0); MCH 44.3 pg (27.0-35.0); MCHC 33.9 g/dL (32.0-36.0); MCV 130.5 fL (80-100); MPV 7.7 fL (7.6-11.3); Monocytes % 12.8 % (3.3-12.3); Neutrophils % 66.9 % (41.7-73.7); Platelets 168 thou/uL (152-406); RBC Red Blood Cell Count 4.86 M/uL (3.86-4.86); Red Cell Distribution Width 16.5 % (12.1-15.2)
--- NOTE | 2024-08-05 22:17 | RAD REPORT ---
EXAMINATION: ONE VIEW CHEST XR CLINICAL INDICATION: Female, 53 years old.,COUGH TECHNIQUE: Frontal chest projection is submitted. Examination is limited by patient positioning and t echnique. COMPARISON: 09/22/2023 FINDINGS: The lungs are diffusely emphysematous with prominent right more than left basilar streaky opacities. No pneumothorax or sizable effusion. The heart is normal in size. Mediastinal contours are unremarkable. IMPRESSION: Prominent right more than left basilar streaky opacities, concerning for COPD exacerbation.
[2024-08-05 22:28] LABS: Albumin 3.8 g/dL (3.4-5.0); Albumin/Globulin Ratio 0.9 (1.1-1.8); Anion Gap 8.9 mEq/L (5.0-15.0); Bilirubin Total 1.1 mg/dL (0.2-1.0); Globulin 4.1 g/dL (2.3-3.5); Protein, Total 7.9 g/dL (6.4-8.2)
[2024-08-05 22:31] LABS: Potassium 2.9 mEq/L (3.5-5.1)
[2024-08-05 22:50] LABS: PT Prothrombin Time 10.5 SECONDS (9.4-12.5); PTT, Activated Partial Thromb 25.7 SECONDS (24.3-36.9); Protime INR 0.94
[2024-08-05 22:50] LABS: SARS-CoV-2 Antigen CONTROL BLUE LINE VIS/BG OK; SARS-CoV-2 Antigen Rapid Res Negative (Negative)
[2024-08-05] MEDS ORDERED: KCL 20 MEQ/100 mL IVPB 100 ML IV ONE (22:56)
[2024-08-05] MEDS ORDERED: NA CHLORIDE 0.9% 1,000 ML ONE (22:56)
[2024-08-05] MEDS ORDERED: Magnesium Sulfate 2gm IVPB 2 G/50 ML BAG IV ONE (22:57)
--- NOTE | 2024-08-05 22:57 | ER ---
Nurse's Notes [facility] Name: Kelsea Petty Age: 53 yrs Sex: Female : 1970 Arrival Date: 08/05/2024 Time: 20:38 Bed 19 Private MD: Diagnosis: COPD/ Chronic obstructive pulmonary disease with (acute) exacerbation;Hypokalemia Presentation: 08/05 21:04 Chief complaint: EMS states: toned out to [facility]; pt. reports SOB; pt. hx of COPD ar6 and Asthma. Coronavirus screen: Client denies travel out of the [place] in the last 14 days. At this time, the client does not indicate any symptoms associated with coronavirus-19. Ebola Screen: Patient negative for fever greater than or equal to 101.5 degrees Fahrenheit, and additional compatible Ebola Virus Disease symptoms Patient denies exposure to infectious person. Patient denies travel to an Ebola-affected area in the 21 days before illness onset. No symptoms or risks identified at this time. Initial Sepsis Screen: Does the patient meet any 2 criteria? No. Patient's initial sepsis screen is negative. Does the patient have a suspected source of infection? No. Patient's initial sepsis screen is negative. Risk Assessment: Do you want to hurt yourself or someone else? Patient reports no desire to harm self or others. Onset of symptoms was August 04, 2024. 21:04 Method Of Arrival: EMS: [facility] ar6 21:04 Acuity: KULWINDER 3 ar6 Triage Assessment: 21:05 General: Appears in no apparent distress. uncomfortable. General: Behavior is calm, ar6 cooperative. 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 - Infectious Disease History:: Denies. - Social history:: Smoking status: Patient reports the use of cigarette tobacco products, 1/2 pack. Screenin:15 [facility] ED Fall Risk Assessment (Adult) History of falling in the last 3 months, ar6 including since admission No falls in past 3 months (0 pts) Confusion or Disorientation No (0 pts) Intoxicated or Sedated No (0 pts) Impaired Gait No (0 pts) Mobility Assist Device Used No (0 pt) Altered Elimination No (0 pt) Score/Fall Risk Level 0 - 2 = Low Risk Oriented to surroundings, Maintained a safe environment, Educated pt \T\ family on fall prevention, incl call for assistance when getting out of bed, Hourly rounding (assess needs \T\ fall precautionary measures) done. Abuse screen: Denies threats or abuse. Denies injuries from another. Nutritional screening: No deficits noted. Tuberculosis screening: No symptoms or risk factors identified. Assessment: 21:15 General: Appears in no apparent distress. uncomfortable, Behavior is calm, cooperative, ar6 appropriate for age. Pain: Complains of pain in face Pain currently is 5 out of 10 on a pain scale. Neuro: Level of Consciousness is awake, alert, obeys commands, Oriented to person, place, time, situation. Cardiovascular: Capillary refill < 3 seconds. Respiratory: Reports shortness of breath at rest on exertion cough that is dry, Airway is patent Onset: The symptoms/episode began/occurred yesterday. GI: Abdomen is round non-distended. : No signs and/or symptoms were reported regarding the genitourinary system. EENT: Oral mucosa is moist. Derm: Skin is intact, is healthy with good turgor, Skin is dry, Skin is pink, warm \T\ dry. Musculoskeletal: No signs and/or symptoms reported regarding the musculoskeletal system. 22:15 Reassessment: Patient appears in no apparent distress at this time. Patient and/or jb4 family updated on plan of care and expected duration. Pain level reassessed. Patient is alert, oriented x 3, equal unlabored respirations, skin warm/dry/pink. 23:30 Reassessment: Patient appears in no apparent distress at this time. Patient and/or jb4 family updated on plan of care and expected duration. Pain level reassessed. Patient is alert, oriented x 3, equal unlabored respirations, skin warm/dry/pink. 08/06 00:30 Reassessment: Patient appears in no apparent distress at this time. Patient and/or jb4 family updated on plan of care and expected duration. Pain level reassessed. Patient is alert, oriented x 3, equal unlabored respirations, skin warm/dry/pink. 02:02 Reassessment: Patient appears in no apparent distress at this time. Patient and/or jb4 family updated on plan of care and expected duration. Pain level reassessed. Patient is alert, oriented x 3, equal unlabored respirations, skin warm/dry/pink. 02:04 Reassessment: report given to RAHEEL Kitchen. jb4 03:10 Reassessment: Patient and/or family updated on plan of care and expected duration. Pain rg5 level reassessed. Patient is alert, oriented x 3, equal unlabored respirations, skin warm/dry/pink. Patient states symptoms have improved. Vital Signs: 08/05 21:04 BP 139 / 98; Pulse 94; Resp 20; Temp 98.4(O); Pulse Ox 96% on 2 lpm NC; Weight 54.43 ar6 kg; Height 5 ft. 3 in. ; Pain 5/10; 21:14 BP 139 / 98; Pulse 94; Resp 20; Temp 98.4; Pulse Ox 96% on 2 lpm NC; Weight 54.43 kg; ar6 Height 5 ft. 3 in. ; Pain 5/10; 22:15 BP 139 / 89; Pulse 93; Resp 14; Pulse Ox 97% on 4 lpm NC; jb4 23:30 BP 116 / 67; Pulse 96; Resp 13; Pulse Ox 94% on 4 lpm NC; jb4 23:34 BP 114 / 64; Pulse 96; Pulse Ox 93% ; ec2 08/06 00:15 BP 114 / 77; Pulse 101; Resp 16; Pulse Ox 95% on 4 lpm NC; jb4 01:15 BP 136 / 90; Pulse 98; Resp 17; Pulse Ox 92% on 4 lpm NC; jb4 02:02 BP 128 / 84; Pulse 90; Resp 14; Pulse Ox 92% on 4 lpm NC; jb4 03:07 BP 102 / 71; Pulse 85; Resp 18; Temp 98; Pulse Ox 94% on 4 lpm NC; rg5 08/05 21:14 Body Mass Index 21.26 (54.43 kg, 160.02 cm) ar6 08/05 21:04 Pain Scale: Adult ar6 21:14 Pain Scale: Adult ar6 ED Course: 08/05 20:58 Patient arrived in ED. rv1 20:59 Ted Cox MD is Attending Physician. ec2 21:04 Taylor Marcial, RN is Primary Nurse. ar6 21:05 Triage completed. ar6 21:15 No apparent distress. ar6 21:15 Arm band placed on right wrist. ar6 21:15 Patient has correct armband on for positive identification. Bed in low position. Call ar6 light in reach. Side rails up X 1. Provided Education on: plan of care. Client placed on continuous cardiac and pulse oximetry monitoring. NIBP monitoring applied. Door closed. Moved to private room. Warm blanket given. 21:15 No provider procedures requiring assistance completed. ar6 21:42 Blood Culture Adult (2) Sent. ar6 21:42 CBC with Diff Sent. ar6 21:42 CMP Sent. ar6 21:42 Lactate w/ 2H reflex if indic. Sent. ar6 21:42 Protime (+inr) Sent. ar6 21:42 Ptt, Activated Sent. ar6 21:42 SARS RAPID Sent. ar6 21:42 Influenza Screen (a \T\ B) Sent. ar6 22:00 SARS RAPID Sent. ar6 22:00 Influenza Screen (a \T\ B) Sent. ar6 22:05 Chest Single View XRAY In Process Unspecified. EDMS 22:56 Mar Mora MD is Hospitalizing Provider. ec2 08/06 03:01 Inserted saline lock: 22 gauge in right antecubital area, using aseptic technique. rg5 Blood collected. Flushed with 10 mL NS. 03:10 Patient admitted, IV remains in place. rg5 Administered Medications: 08/05 22:00 Drug: NS 0.9% IV 500 ml IV at bolus once; to be given as a bolus over 30 minutes Route: ar6 IV; Rate: bolus; Site: right antecubital; 08/06 00:03 Follow up: Response: No adverse reaction; IV Status: Completed infusion; IV Intake: jb4 500ml 08/05 22:00 Drug: MethylPrednisoLONE IVP 125 mg IVP once Route: IVP; Site: right antecubital; ar6 08/06 00:03 Follow up: Response: No adverse reaction jb4 08/05 22:00 Drug: DuoNeb Nebulize (3:1) (2.5 mg - 0.5 mg) 3 ml Nebulizer once Route: Nebulizer; ar6 08/06 00:03 Follow up: Response: No adverse reaction; Marked relief of symptoms jb4 08/05 22:01 Drug: Rocephin IV 1 grams IV at calculated rate once; Given slow IV push per pharmacy ar6 instructions Route: IV; Rate: calculated rate; Site: right antecubital; 22:39 Follow up: IV Status: Infusion continued; IV Intake: 100ml rg5 23:10 Drug: Magnesium Sulfate IVPB 2 grams IVPB once over 30 mins Route: IVPB; Infused Over: jb4 60 mins; Site: right antecubital; 08/06 00:03 Follow up: Response: No adverse reaction; IV Status: Completed infusion; IV Intake: [id number] 08/05 23:31 Drug: NS 0.9% IV 1500 ml IV at 1500 ml once; to be given as a bolus over 60 minutes jb4 Route: IV; Rate: 1500 ml; Site: right wrist; 08/06 01:04 Follow up: Response: No adverse reaction; IV Status: Completed infusion; IV Intake: jb4 1500ml 08/05 23:31 Drug: AZITHromycin IVPB 500 mg IVPB once over 1 hrs; (mix in 250 mL NS) Route: IVPB; jb4 Infused Over: 1 hrs; Site: right wrist; 08/06 00:30 Follow up: Response: No adverse reaction; IV Status: Completed infusion; IV Intake: jb4 250ml 00:04 Drug: Potassium Chloride IV 20 mEq IV at calculated rate once; administer over 1-2 jb4 hours Route: IV; Rate: calculated rate; Site: right antecubital; 01:04 Follow up: Response: No adverse reaction; IV Status: Completed infusion; IV Intake: jb4 100ml 01:49 Drug: Acetaminophen PO 1000 mg PO once Route: PO; jb4 02:54 Follow up: Response: No adverse reaction rg5 Medication: 08/05 21:15 VIS not applicable for this client. ar6 Intake: 22:39 IV: 100ml; Total: 100ml. rg5 08/06 00:03 IV: 50ml; Total: 150ml. jb4 00:03 IV: 500ml; Total: 650ml. jb4 00:30 IV: 250ml; Total: 900ml. jb4 01:04 IV: 100ml; Total: 1000ml. jb4 01:04 IV: 1500ml; Total: 2500ml. jb4 Outcome: 08/05 22:57 Decision to Hospitalize by Provider. ec2 08/06 03:10 Admitted to Med/surg accompanied by delmy mosley Condition: stable Instructed on the need for admit, 04:07 Patient left the ED. vc1 Signatures: Dispatcher [employer] EDGaurav Thomas, RN RN jb4 Caren Hayward RN RN vc1 Kiana Dozier rv1 Ted Cox MD MD ec2 José Ochoa RN RN rg5 Taylor Marcial RN RN ar6
--- NOTE | 2024-08-05 22:57 | EDPHYS ---
Physician Documentation [facility] Name: Kelsea Petty Age: 53 yrs Sex: Female : 1970 Arrival Date: 08/05/2024 Time: 20:38 Bed 19 Private MD: ED Physician Ted Cox HPI: 08/05 21:21 This 53 yrs old Female presents to ER via EMS with complaints of Shortness Of ec2 Breath. 21:21 Patient with history of COPD arrives today for evaluation of shortness of breath. ec2 Patient reports symptoms of cough and congestion. Reports that she is been feeling worsening shortness of breath. Has been using her inhalers with some improvement in symptoms.. 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 - Infectious Disease History:: Denies. - Social history:: Smoking status: Patient reports the use of cigarette tobacco products, 1/2 pack. ROS: 21:21 Constitutional: as per hpi ec2 Exam: 21:21 Constitutional: GEN: NAD Head: atraumatic Eyes: EOMI Ears: External ears are ec2 normal. CV: regular rate LUNGS: no respiratory distress, scattered and expiratory wheezes noted in bilateral lung smith ABD: non-distended SKIN: no evidence of rashes MSK: no evidence of trauma Vital Signs: 21:04 BP 139 / 98; Pulse 94; Resp 20; Temp 98.4(O); Pulse Ox 96% on 2 lpm NC; Weight 54.43 ar6 kg; Height 5 ft. 3 in. ; Pain 5/10; 21:14 BP 139 / 98; Pulse 94; Resp 20; Temp 98.4; Pulse Ox 96% on 2 lpm NC; Weight 54.43 kg; ar6 Height 5 ft. 3 in. ; Pain 5/10; 22:15 BP 139 / 89; Pulse 93; Resp 14; Pulse Ox 97% on 4 lpm NC; jb4 23:30 BP 116 / 67; Pulse 96; Resp 13; Pulse Ox 94% on 4 lpm NC; jb4 23:34 BP 114 / 64; Pulse 96; Pulse Ox 93% ; ec2 08/06 00:15 BP 114 / 77; Pulse 101; Resp 16; Pulse Ox 95% on 4 lpm NC; jb4 01:15 BP 136 / 90; Pulse 98; Resp 17; Pulse Ox 92% on 4 lpm NC; jb4 02:02 BP 128 / 84; Pulse 90; Resp 14; Pulse Ox 92% on 4 lpm NC; jb4 03:07 BP 102 / 71; Pulse 85; Resp 18; Temp 98; Pulse Ox 94% on 4 lpm NC; rg5 08/05 21:14 Body Mass Index 21.26 (54.43 kg, 160.02 cm) ar6 08/05 21:04 Pain Scale: Adult ar6 21:14 Pain Scale: Adult ar6 MDM: 08/05 20:59 Medical Screening Exam initiated ec2 21:21 Data reviewed: vital signs. ED course: Patient arrives today for evaluation of ec2 shortness of breath. Examination remarkable for pulmonary findings as above. Will obtain a septic workup and empirically treat with antibiotics as well as DuoNeb and steroids. Differential includes viral infection, pneumonia, COPD exacerbation . 21:51 ED course: EKG independently reviewed and interpreted by me, shows normal sinus rhythm, ec2 rate of 89, no acute ST segment elevations, intervals are nonactionable . 22:45 ED course: Patient with lactic acidosis noted, will give the patient rest of 30 cc/kg ec2 fluid bolus. 22:55 ED course: Patient with hemoglobin of 21.5, similar to previous lab work, suspect this ec2 is from patient's COPD. . 23:37 ED course: Sepsis reassessment complete.. ec2 08/06 03:19 ED course: sepsis reassessment complete. ec2 08/05 21:08 Order name: Blood Culture Adult (2) ec2 08/05 21:08 Order name: CBC with Diff; Complete Time: 00:02 ec2 08/05 21:08 Order name: CMP; Complete Time: 22:44 ec2 08/05 21:08 Order name: Lactate w/ 2H reflex if indic.; Complete Time: 22:44 ec2 08/05 21:08 Order name: Protime (+inr); Complete Time: 22:55 ec2 08/05 21:08 Order name: Ptt, Activated; Complete Time: 22:55 ec2 08/05 21:11 Order name: Influenza Screen (a \T\ B); Complete Time: 22:55 ec2 08/05 21:11 Order name: SARS RAPID; Complete Time: 22:55 ec2 08/05 22:48 Order name: CBC Smear Scan; Complete Time: 00:02 EDMS 08/06 00:43 Order name: Ghost Lactate-NO COLLECT Timer; Complete Time: 01:15 EDMS 08/06 02:44 Order name: Lactate w/ 2H reflex if indic. EDMS 08/06 02:44 Order name: Liver (Hepatic) Function EDMS 08/06 02:44 Order name: Magnesium EDMS 08/06 02:44 Order name: NT PRO-BNP EDMS 08/06 02:44 Order name: Phosphorus EDMS 08/06 02:44 Order name: Thyroid Stimulating Hormone EDMS 08/06 02:44 Order name: Urinalysis w/ reflexes EDMS 08/06 02:44 Order name: Lipid Profile EDMS 08/06 02:44 Order name: Lipid Profile EDMS 08/06 03:10 Order name: Lactate Sepsis 2 HR Follow-up; Complete Time: 03:19 EDMS 08/05 21:08 Order name: Chest Single View XRAY; Complete Time: 22:20 ec2 08/06 02:47 Order name: Chest For Pe Angio EDMS 08/06 02:44 Order name: CONS Physician Consult EDMS 08/05 21:08 Order name: Cardiac monitoring; Complete Time: 21:13 ec2 08/05 21:08 Order name: EKG - Nurse/Tech; Complete Time: 21:42 ec2 08/05 21:08 Order name: IV Saline Lock - Large Bore; Complete Time: 21:14 ec2 08/05 21:08 Order name: Labs collected and sent; Complete Time: 21:42 ec2 08/05 21:08 Order name: O2 Per Protocol; Complete Time: 21:25 ec2 08/05 21:08 Order name: O2 Sat Monitoring; Complete Time: 21:25 ec2 08/05 21:08 Order name: Vital Signs; Complete Time: 21:25 ec2 Administered Medications: 08/05 22:00 Drug: NS 0.9% IV 500 ml IV at bolus once; to be given as a bolus over 30 minutes Route: ar6 IV; Rate: bolus; Site: right antecubital; 08/06 00:03 Follow up: Response: No adverse reaction; IV Status: Completed infusion; IV Intake: jb4 500ml 08/05 22:00 Drug: MethylPrednisoLONE IVP 125 mg IVP once Route: IVP; Site: right antecubital; ar6 08/06 00:03 Follow up: Response: No adverse reaction [facility] 08/05 22:00 Drug: DuoNeb Nebulize (3:1) (2.5 mg - 0.5 mg) 3 ml Nebulizer once Route: Nebulizer; ar6 08/06 00:03 Follow up: Response: No adverse reaction; Marked relief of symptoms [facility] 08/05 22:01 Drug: Rocephin IV 1 grams IV at calculated rate once; Given slow IV push per pharmacy ar6 instructions Route: IV; Rate: calculated rate; Site: right antecubital; 22:39 Follow up: IV Status: Infusion continued; IV Intake: 100ml rg5 23:10 Drug: Magnesium Sulfate IVPB 2 grams IVPB once over 30 mins Route: IVPB; Infused Over: jb4 60 mins; Site: right antecubital; 08/06 00:03 Follow up: Response: No adverse reaction; IV Status: Completed infusion; IV Intake: [id number] 08/05 23:31 Drug: NS 0.9% IV 1500 ml IV at 1500 ml once; to be given as a bolus over 60 minutes jb4 Route: IV; Rate: 1500 ml; Site: right wrist; 08/06 01:04 Follow up: Response: No adverse reaction; IV Status: Completed infusion; IV Intake: jb4 1500ml 08/05 23:31 Drug: AZITHromycin IVPB 500 mg IVPB once over 1 hrs; (mix in 250 mL NS) Route: IVPB; jb4 Infused Over: 1 hrs; Site: right wrist; 08/06 00:30 Follow up: Response: No adverse reaction; IV Status: Completed infusion; IV Intake: jb4 250ml 00:04 Drug: Potassium Chloride IV 20 mEq IV at calculated rate once; administer over 1-2 jb4 hours Route: IV; Rate: calculated rate; Site: right antecubital; 01:04 Follow up: Response: No adverse reaction; IV Status: Completed infusion; IV Intake: jb4 100ml 01:49 Drug: Acetaminophen PO 1000 mg PO once Route: PO; jb4 02:54 Follow up: Response: No adverse reaction rg5 Disposition: 08/05 22:45 Critical Care:. ec2 Disposition Summary: 08/05/24 22:57 Hospitalization Ordered Notes: Hospitalization Status: Inpatient Admission ec2 Provider: Mar Mora ec2 [facility] ec2 Condition: Stable ec2 Problem: an acute exacerbation ec2 Symptoms: have improved ec2 Bed/Room Type: Standard ec2 Room Assignment: 224(08/06/24 02:53) vc1 Diagnosis - COPD/ Chronic obstructive pulmonary disease with (acute) exacerbation ec2 - Hypokalemia ec2 Forms: - Medication Reconciliation Form ec2 - SBAR form ec2 - Leadership Thank You Letter ec2 Critical care time excluding procedures: 22:45 Critical care time: Bedside Care: 30 minutes, Consultation: 5 minutes. Total time: 35 ec2 minutes Signatures: Dispatcher [employer] EDGaurav Thomas RN RN jb4 Caren Hayward RN RN vc1 Ted Cox MD MD ec2 Taylor Marcial RN RN ar6 Jsoé Ochoa RN rg5 Corrections: (The following items were deleted from the chart) 21:08 21:08 BLOOD CULTURE*+BA.LAB.BRZ ordered. EDMS EDMS 21:08 21:08 CBC+H.LAB.BRZ ordered. EDMS EDMS 21:08 21:08 COMPREHENSIVE METABOLIC PANEL+C.LAB.BRZ ordered. EDMS EDMS 21:08 21:08 LACTATE+C.LAB.BRZ ordered. EDMS EDMS 21:08 21:08 PROTIME (+INR)+COAG.LAB.BRZ ordered. EDMS EDMS 21:08 21:08 PTT, ACTIVATED+COAG.LAB.BRZ ordered. EDMS EDMS 21:09 21:09 Chest Single View+RAD.RAD.BRZ ordered. EDMS EDMS 21:42 21:08 Accucheck ordered. ec2 ar6 08/06 02:53 08/05 22:57 ec2 vc1
[2024-08-05] MEDS ORDERED: NA CHLORIDE 0.9% 250 ML ONE (23:20)
[2024-08-05] MEDS ORDERED: AZITHROMYCIN 500 MG INJ IVPB ONE (23:20)
[2024-08-06 00:01] LABS: Blood Morphology Comment NOTED (NOT SEEN); Macrocytosis 3+; Platelet Estimate ADEQ; White Blood Cell Scan OK (OK)
[2024-08-06] MEDS ORDERED: IBUPROFEN 400 MG TAB ONE (01:42)
[2024-08-06] MEDS ORDERED: ACETAMINOPHEN 500 MG TAB ONE (01:46)
[2024-08-06] MEDS ORDERED: ZOLPIDEM TARTRATE 5 MG TABLET PO PRN (02:34)
[2024-08-06] MEDS ORDERED: ONDANSETRON 4 MG (ODT) TAB PO PRN (02:34)
[2024-08-06] MEDS ORDERED: ALBUTEROL 2.5 MG/3 ML NEB SOL NEB PRN (02:34)
[2024-08-06] MEDS ORDERED: ACETAMINOPHEN 325 MG TABLET PO PRN (02:34)
[2024-08-06] MEDS ORDERED: AZITHROMYCIN IV 500 MG in NA CHLORIDE 0.9% 250 ML IVPB ONE (02:43)
--- NOTE | 2024-08-06 02:50 | P.HP ---
Certification for Inpatient With expected LOS: <2 Midnights Practitioner: I am a practitioner with admitting privileges, knowledge of patient current condition, hospital course, and medical plan of care. Services: Services provided to patient in accordance with Admission requirements found in Title 42 Section 412.3 of the Code of Federal Regulations Patient History Date of Service: 08/06/24 Reason for admission: COPD exacerbation, sepsis History of Present Illness: 53-year-old woman with a past medical history significant for COPD and hypertension presented to the emergency department complaining of shortness of breath and productive cough for unknown amount of days. The patient states her last COPD exacerbation was last year, and she was not intubated at this time. Patient is an every day smoker and currently smokes 3 packs of cigarettes a week. Upon arrival to the ED the patient was given IV antibiotics, steroids, potassium repletion, and a DuoNeb breathing treatment. Despite receiving oxygen via nasal cannula, the patient is still short of breath. She states she is not on home oxygen. Allergies No Known Allergies Allergy (Unverified 09/25/23 11:00) Home medications list reviewed: Yes Home Medications: Albuterol Sulfate [Proair Digihaler] See Rx Instructions .ROUTE .COMPLEX PRN 09/22/23 Losartan/Hydrochlorothiazide [Losartan-Hctz 50-12.5 mg Tab] See Rx Instructions .ROUTE .COMPLEX 09/22/23 Omeprazole [Prilosec] 40 mg PO DAILY 09/22/23 Albuterol Inhaler [Ventolin Inhaler*] 2 puff IH Q6H PRN #2 inhaler 09/25/23 Aspirin [Aspirin EC] 81 mg PO DAILY #30 tab 09/25/23 Benzonatate [Tessalon Perle] 100 mg PO TID #30 cap 09/25/23 Mometasone/Formoterol [Dulera 100 Mcg/5 Mcg Inhaler] 60 puff IH BID #1 inhaler 09/25/23 predniSONE [Deltasone] 20 mg PO BID 3 Days #6 tab 09/25/23 - Past Medical/Surgical History -: COPD -: Hypertension -: -: Hysterectomy Psychosocial/ Personal History: Lives at home with family - Social History Smoking Status: Current every day smoker (3 packs/week) Counseled patient to stop smoking for: less than 10 minutes Patient receptive to therapy: No Alcohol use: No CD- Drugs: No Caffeine use: Yes Review of Systems Respiratory: Cough, Shortness of Breath, SOB with Excertion, Sputum, Wheezing Cardiovascular: Chest Pain Physical Examination - Vital Signs Temperature: 98 F Blood Pressure: 119/76 Pulse: 99 Respirations: 18 - Physical Exam General: Alert, Oriented x3 HEENT: Atraumatic, Normocephalic Neck: JVD not distended Respiratory: Dull (dullness to percussion Right >left), Crackles/rales Cardiovascular: No gallops, No rubs, No murmurs Gastrointestinal: Normal bowel sounds, Non-distended Musculoskeletal: No swelling, No erythema, No tenderness Neurological: Normal strength at 5/5 x4 extr, Sensation intact - Studies Laboratory Data (last 24 hrs) 08/05/24 08/05/24 08/05/24 22:27 21:37 21:37 WBC 8.10 Hgb 21.5 H Hct 63.5 H Plt Count 168 PT 10.5 INR 0.94 APTT 25.7 Sodium 135 L Potassium 2.9 L BUN 17 Creatinine 1.06 H Glucose 98 Total Bilirubin 1.1 H AST 62 H ALT 60 H Alkaline Phosphatase 155 H Microbiology Data (last 24 hrs): 08/05/24 21:46 Nasopharnyx Influenza Type A Antigen Screen - Final 08/05/24 21:46 Nasopharnyx Influenza Type B Antigen Screen - Final Assessment and Plan - Problems (Diagnosis) (1) COPD exacerbation Current Visit: Yes Status: Acute (2) Sepsis Current Visit: Yes Status: Acute - Plan COPD exacerbation: Continue with oxygen via nasal cannula Continue with ceftriaxone Continue with azithromycin Continue with methylprednisolone as needed Continue with DuoNeb treatments as needed Sepsis: Blood cultures sent prior to receiving antibiotics CT chest pending to rule out pulmonary embolism Pulmonary consult placed - Advance Directives Does patient have a Living Will: No Does patient have a Durable POA for Healthcare: No - Code Status/Comfort Care Code Status: Full Code
[2024-08-06 04:17] VITALS: BMI 21.2
[2024-08-06 06:36] LABS: Albumin/Globulin Ratio 0.9 (1.1-1.8); Anion Gap 6.9 mEq/L (5.0-15.0); Bilirubin Direct 0.4 mg/dL (0-0.2); Bilirubin Indirect, Calculated 0.6 mg/dL (0.2-0.8); Globulin 3.4 g/dL (2.3-3.5); Magnesium 2.1 mg/dL (1.6-2.4); Potassium 3.9 mEq/L (3.5-5.1); Protein, Total 6.4 g/dL (6.4-8.2); Thyroid Stimulating Hormone 0.569 uIU/mL (0.358-3.740)
[2024-08-06] MEDS: IPRATROPIUM BROM 0.5MG/2.5ML NEB SCH ×2 (07:40→20:18)
--- NOTE | 2024-08-06 07:52 | RAD REPORT ---
EXAMINATION: CTA CHEST PE CLINICAL INDICATION: Chest pain TECHNIQUE: 100 cc 370 Isovue administered intravenously. This examination was performed according to an angiographic protocol with 3D post-processing. This involves 3D reconstructions, MIPs, volume rendered images and/or shaded surface rendering. One or more of the following dose reduction techniqu es were used: Automated exposure control, adjustment of the mA and/or kV according to patient size, and/or iterative reconstruction. Unless otherwise specified, incidental findings do not require dedic ated imaging follow-up. [id number]. COMPARISON: 2022. FINDINGS: A pulmonary embolus is not seen. An aortic aneurysm not noted. No pleural effusion. No pericardial effusion. Minimal atelectasis left lower lobe. Lungs are generally clear. COPD IMPRESSION: No evidence of a pulmonary embolism
--- NOTE | 2024-08-06 07:58 | P.PN ---
Date of Service: 08/06/24 subjective Presented after midnight 94% on 3 L - Physical Exam vital signs Reviewed General: Alert, Oriented x3 HEENT: Atraumatic, Normocephalic Neck: JVD not distended Respiratory: Dull (dullness to percussion Right >left), Crackles/rales Cardiovascular: No gallops, No rubs, No murmurs Gastrointestinal: Normal bowel sounds, Non-distended Musculoskeletal: No swelling, No erythema, No tenderness Neurological: Normal strength at 5/5 x4 extr, Sensation intact Assessment acute hypoxic respiratory failure secondary to COPD exacerbation Nebs, steroids, Pulmonary consult SIRS, sepsis, Lactic acidosis, IV antibiotics, Trend lactic Hypokalemia, Trend electrolytes replace as needed Transaminitis Trend liver enzymes Polycythemia vera Hemoglobin 21.5/hematocrit 63.5 Consider therapeutic phlebotomy Elevated BNP 731 Trend BNP Echo ordered Admitted after midnight time spent with patient 30-minute
[2024-08-06] MEDS: CEFTRIAXONE 1,000 MG in NA CHLORIDE 0.9% 50 ML IVPB SCH (08:51)
[2024-08-06] MEDS: ENOXAPARIN 40 MG/0.4 ML SQ SCH (08:51)
[2024-08-06] MEDS ORDERED: LOSARTAN POTASSIUM 50 MG TABLET PO SCH (11:02)
[2024-08-06] MEDS ORDERED: chlordiazePOXIDE HCl 5 MG CAP PO PRN (12:03)
--- NOTE | 2024-08-06 12:05 | P.CNS ---
Date of Consult: 08/06/24 Reason for Consult: COPD exacerbation Chief Complaint: COPD exacerbation History of Present Illness: Patient is 53 years of age with a history of COPD became worse over the past 1- 1/2 weeks patient is an active smoker is taking albuterol and Dulera at home in addition to nebulizers planing of cough and congestion drinks on a daily basis Allergies strawberry Adverse Reaction (Verified 08/06/24 04:27) Anaphylaxis Home Medications: Losartan/Hydrochlorothiazide [Losartan-Hctz 50-12.5 mg Tab] 1 tab PO DAILY 09/22/23 Omeprazole [Prilosec] 20 mg PO DAILY 09/22/23 Mometasone/Formoterol [Dulera 100 Mcg/5 Mcg Inhaler] 60 puff IH BID #1 inhaler 09/25/23 Albuterol Neb [Proventil 0.083% Neb Soln] 1 puff NEB QID 08/06/24 Albuterol Sulfate [Albuterol Sulfate Hfa] 1 puff IH Q4HR PRN 08/06/24 Aspirin 81 mg PO DAILY 08/06/24 Ipratropium [place] 1 puff IH QID 08/06/24 - Past Medical/Surgical History Diabetic: No -: COPD -: Hypertension -: divirticulitis -: -: Hysterectomy -: tonsilectomy -: teeth surgery Psychosocial/ Personal History: Lives at home with family - Family History Mother Medical History: Stroke dad Medical History: Heart disease, Hypertension Notes: [place] - Social History Smoking Status: Current every day smoker Alcohol use: No CD- Drugs: No Caffeine use: Yes Place of Residence: Home Review of Systems 10-point ROS is otherwise unremarkable General: Weakness Respiratory: Cough, Shortness of Breath Physical Examination Temp Pulse Resp BP Pulse Ox 97.3 F 85 16 142/67 H 96 08/06/24 08:42 08/06/24 08:42 08/06/24 08:42 08/06/24 08:42 08/06/24 08:42 General: Alert, Oriented x3 Respiratory: Clear to auscultation bilaterally, Diminished Cardiovascular: No edema, Normal pulses, Regular rate/rhythm Gastrointestinal: Soft and benign, Non-distended Laboratory Data (last 24 hrs) 08/05/24 08/05/24 08/05/24 22:27 21:37 21:37 WBC 8.10 Hgb 21.5 H Hct 63.5 H Plt Count 168 PT 10.5 INR 0.94 APTT 25.7 Sodium 135 L Potassium 2.9 L BUN 17 Creatinine 1.06 H Glucose 98 Total Bilirubin 1.1 H AST 62 H ALT 60 H Alkaline Phosphatase 155 H - Problems (1) COPD exacerbation Current Visit: Yes Status: Acute Plan: Patient is 53 years of age heavy smoker drinks on a daily basis admitted with worsening dyspnea over the past 1-1/2 weeks she does take albuterol and Dulera in addition to nebulizers at home x-ray consistent with COPD changes patient also has macrocytosis consistent with alcohol use patient also has abnormal LFTs (2) Polycythemia Current Visit: Yes Status: Acute Plan: Patient has severe polycythemia repeat CBC
--- NOTE | 2024-08-06 12:21 | ECHO ---
HEIGHT: 5 ft 3 in WEIGHT: 119 lb 11.2 oz DATE OF STUDY: 08/06/[address]: Lorenza Vance RECRUITING INTERN-Tex 2-DIMENSIONAL: YES M.MODE: YES DOPPLER: YES COLOR FLOW: YES TDS: PORTABLE: YES DEFINITY: BUBBLE STUDY: DIAGNOSIS: FLUID VOLUME OVERLOAD CARDIAC HISTORY: CATHERIZATION: SURGERY: PROSTHETIC VALVE: PACEMAKER: MEASUREMENTS (cm) DIASTOLIC (NORMALS) SYSTOLIC (NORMALS) IVSd 1.0 (0.6-1.2) LA Diam 2.7 (1.9-4.0) LVEF 60-65% LVIDd 3.7 (3.5-5.7) LVIDs 2.2 (2.0-3.5) %FS 42% LVPWd 1.1 (0.6-1.2) Ao Diam 2.7 (2.0-3.7) 2 DIMENSIONAL ASSESSMENT: RIGHT ATRIUM: NORMAL LEFT ATRIUM: NORMAL RIGHT VENTRICLE: NORMAL LEFT VENTRICLE: NORMAL TRICUSPID VALVE: TRACE TRICUSPID REGURGITATION MITRAL VALVE: NORMAL PULMONIC VALVE: NORMAL AORTIC VALVE: NORMAL PERICARDIAL EFFUSION: NONE AORTIC ROOT: NORMAL LEFT VENTRICULAR WALL MOTION: NORMAL DOPPLER/COLOR FLOW: NORMAL COMMENTS: 1. NORMAL LEFT VENTRICULAR SYSTOLIC FUNCTION, EJECTION FRACTION 60-65%, NORMAL WALL MOTION 2. NORMAL DIASTOLIC FUNCTION 3. ELEVATED FILLING PRESSURE (RIGHT ATRIAL PRESSURE GREATER THAN 20 mmHg) TECHNOLOGIST: DEEPA UPTON
[2024-08-06] MEDS: NICOTINE 21 MG/PAT TD SCH (12:39)
[2024-08-06] MEDS: THIAMINE HCL 100 MG TABLET PO SCH (12:39)
[2024-08-06] MEDS: LOSARTAN POTASSIUM 50 MG TABLET PO SCH (12:39)
[2024-08-06] MEDS: METHYLPREDNISOLONE 125 MG INJ IV SCH (12:40)
[2024-08-06 13:31] LABS: Absolute Lymphocytes (CBC) 1.3 K/uL (0.7-4.9); Absolute Neutrophil 3.3 K/uL (1.8-8.0); Basophils % 0.6 % (0-1.3); Hematocrit 57.1 % (36.0-45.0); Hemoglobin 19.3 g/dL (12.0-15.0); Lymphocytes % 22.6 % (15.3-44.8); MCH 43.8 pg (27.0-35.0); MCHC 33.8 g/dL (32.0-36.0); MCV 129.7 fL (80-100); MPV 7.6 fL (7.6-11.3); Monocytes % 17.3 % (3.3-12.3); Neutrophils % 59.5 % (41.7-73.7); Platelets 161 thou/uL (152-406)
[2024-08-06 14:47] LABS: Blood Morphology Comment NOTED (NOT SEEN); Platelet Estimate ADEQ; White Blood Cell Scan OK (OK)
--- NOTE | 2024-08-06 14:47 | EKG ---
Test Date: 2024-08-05 Test Time: 21:49:58 Water Server: YINKA MEASUREMENT RESULTS: Intervals: Rate: 89 IN: 126 QRSD: 88 QT: 372 QTc: 452 [place]: P: 76 IN: 126 QRS: 81 T: 62 INTERPRETIVE STATEMENTS: Normal sinus rhythm Nonspecific ST abnormality Abnormal ECG Compared to ECG 09/22/2023 05:14:03 ST (T wave) deviation now present Prolonged QT interval no longer present Electronically Signed On 08-06-24 14:45:37 CDT by Chacorta Hahn
[2024-08-06 14:48] LABS: Macrocytosis 3+
[2024-08-06 15:08] LABS: Arterial Blood Carboxyhemoglob 2.6 % (0-1.5); Blood O2 Saturation 82.8 % (92-98.5)
[2024-08-06 15:09] LABS: Blood Gas THB 21.7 g/dl (12-18)
[2024-08-06] MEDS: DULERA 200/5 (MOMETASONE/FORMOTEROL) INHALER IH SCH (15:45)
[2024-08-06] MEDS: ALBUTEROL 2.5 MG/3 ML NEB SOL NEB SCH (20:18)
[2024-08-06] MEDS: AMOX/K CLAV 875 MG TAB PO SCH (20:44)
[2024-08-06 23:33] VITALS: O2SAT 97
[2024-08-07] MEDS: NA CHLORIDE 0.9% 1,000 ML IV SCH (06:12)
[2024-08-07] MEDS ORDERED: HOME MED 1 EA UNK (Omeprazole [Prilosec] 40 MG Capsule.Dr) PO SCH (09:00)
[2024-08-07] MEDS: ASPIRIN 81 MG CHEWABLE TABLET PO SCH (09:50)
[2024-08-07] MEDS: PANTOPRAZOLE 40MG TABLET PO SCH (09:50)
[2024-08-07 10:01] VITALS: BP 138/81; TEMP 97.8
--- NOTE | 2024-08-07 12:02 | P.DS ---
Admission Date: 08/06/24 Discharge Date: 08/07/24 Disposition: ROUTINE DISCHARGE Reason for Admission: COPD exacerbation Brief History of Present Illness: 53-year-old woman with a past medical history significant for COPD and hypertension presented to the emergency department complaining of shortness of breath and productive cough for unknown amount of days. The patient states her last COPD exacerbation was last year, and she was not intubated at this time. Patient is an every day smoker and currently smokes 3 packs of cigarettes a week. Upon arrival to the ED the patient was given IV antibiotics, steroids, potassium repletion, and a DuoNeb breathing treatment. Despite receiving oxygen via nasal cannula, the patient is still short of breath. She states she is not on home oxygen. - Physical Exam General: Alert, Oriented x3 HEENT: Atraumatic, Normocephalic Neck: JVD not distended Respiratory: Dull, equal unlabored, productive cough Cardiovascular: No gallops, No rubs, No murmurs Gastrointestinal: Normal bowel sounds, Non-distended Musculoskeletal: No swelling, No erythema, No tenderness Neurological: Normal strength at 5/5 x4 extr, Sensation intact Hospital Course: 53-year-old woman with a past medical history significant for COPD and hypertension presented to the emergency department complaining of shortness of breath and productive cough for unknown amount of days. The patient states her last COPD exacerbation was last year, she was noted to have sepsis, lactic acidosis, elevated liver enzymes, polycythemia vera, was treated with therapeutic phlebotomy while inpatient. Will need to follow-up with hematology /oncology after discharge. Ru after discharge, was treated with albuterol, steroids, antibiotics, oxygen while inpatient. She was noted to have hypokalemia potassium was replaced while inpatient. Echo was completed NORMAL LEFT VENTRICULAR SYSTOLIC FUNCTION, EJECTION FRACTION 60-65%, NORMAL WALL MOTION 2. NORMAL DIASTOLIC FUNCTION 3. ELEVATED FILLING PRESSURE (RIGHT ATRIAL PRESSURE GREATER THAN 20 mmHg) CT of the chest Minimal atelectasis left lower lobe. Lungs are generally clear. COPD. She will need to continue nebulizers, inhaler after discharge, will discharge home on p.o. cefdinir, prednisone 1 p.o. twice daily for 5 days, she reports having home O2 from a friend. History of tobacco use educated on tobacco, alcohol used educated cessation, will discharge home with nicotine patch. History of alcohol use, she needs to stop alcohol use, recommend alcohol cessation, discharged on Librium, she will need to follow-up with oncology for therapeutic phlebotomy after discharge. Assessment COPD exacerbation-discharged home on prednisone 1 p.o. twice daily for 5 days, patient has nebulizers at home, Sepsis, improved with IV antibiotic-discharged home on cefdinir take as directed until gone Lactic acidosis improved with IV antibiotics, Polycythemia vera, treated with therapeutic phlebotomy, will need to follow-up with hematology oncology outpatient for therapeutic phlebotomy Tobacco use educated on tobacco cessation discharge home with nicotine patch Alcohol use educate on alcohol cessation, discharged home on Librium Continue home medicines as previously prescribed GOAL: Clear understanding of disease process INSTRUCTIONS: Physician Discharge Instructions: -follow up with Dr Vazquez after discharge for theraputic phelobotomy -Follow-up with PCP in 1 to 2 weeks -Please call Dr. Mora at [phone] if any questions regarding hospital stay -Please call nursing station at [phone] if any nursing or medication questions -Return to the emergency room if symptoms worsen Diet: ADA, low sodium Activity: Fall precautions Vital Signs/Physical Exam: Temp Pulse Resp BP Pulse Ox 97.8 F 78 18 138/81 96 08/07/24 08:00 08/07/24 08:00 08/07/24 08:00 08/07/24 08:00 08/07/24 08:00 Laboratory Data at Discharge: WBC 5.60 thou/uL (4.3-10.9) 08/06/24 13:21 Hgb 19.3 g/dL (12.0-15.0) H D 08/06/24 13:21 Hct 57.1 % (36.0-45.0) H 08/06/24 13:21 Plt Count 161 thou/uL (152-406) 08/06/24 13:21 PT 10.5 SECONDS (9.4-12.5) 08/05/24 22:27 INR 0.94 08/05/24 22:27 APTT 25.7 SECONDS (24.3-36.9) 08/05/24 22:27 Sodium 139 mEq/L (136-145) 08/06/24 05:45 Potassium 3.9 mEq/L (3.5-5.1) D 08/06/24 05:45 BUN 12 mg/dL (7-18) 08/06/24 05:45 Creatinine 1.03 mg/dL (0.55-1.02) H 08/06/24 05:45 Glucose 187 mg/dL (74-106) H 08/06/24 05:45 Phosphorus 3.0 mg/dL (2.5-4.9) 08/06/24 05:45 Magnesium 2.1 mg/dL (1.6-2.4) 08/06/24 05:45 Total Bilirubin 1.0 mg/dL (0.2-1.0) 08/06/24 05:45 AST 51 U/L (15-37) H 08/06/24 05:45 ALT 54 U/L (13-56) 08/06/24 05:45 Alkaline Phosphatase 128 U/L (45-117) H 08/06/24 05:45 Triglycerides 48 mg/dL (<150) 08/07/24 04:13 Cholesterol 128 mg/dL (<200) 08/07/24 04:13 HDL Cholesterol 83 mg/dL (40-60) H 08/07/24 04:13 Cholesterol/HDL Ratio 1.54 08/07/24 04:13 Home Medications: Losartan/Hydrochlorothiazide [Losartan-Hctz 50-12.5 mg Tab] 1 tab PO DAILY 09/22/23 Omeprazole [Prilosec] 20 mg PO DAILY 09/22/23 Mometasone/Formoterol [Dulera 100 Mcg/5 Mcg Inhaler] 60 puff IH BID #1 inhaler 09/25/23 Albuterol Neb [Proventil 0.083% Neb Soln] 1 puff NEB QID 08/06/24 Albuterol Sulfate [Albuterol Sulfate Hfa] 1 puff IH Q4HR PRN 08/06/24 Aspirin 81 mg PO DAILY 08/06/24 Ipratropium [place] 1 puff IH QID 08/06/24 Albuterol Neb [Proventil 0.083% Neb Soln] 2.5 mg NEB [id number] amp 08/07/24 Amox/Clavulanate [Augmentin 875-125 Tab*] 875 mg PO BID 7 Days #14 tab 08/07/24 Benzonatate [Tessalon Perle] 200 mg PO TID 10 Days #30 cap 08/07/24 Nicotine [Nicoderm*] 21 mg TD Q24H #30 08/07/24 Thiamine HCl [Vitamin B-1*] 200 mg PO BID 30 Days #30 mg 08/07/24 chlordiazePOXIDE HCl [Librium*] 10 mg PO TID PRN 30 Days #90 cap 08/07/24 predniSONE [Deltasone] 20 mg PO BID 5 Days #10 tab 08/07/24 New Medications: Amox/Clavulanate [Augmentin 875-125 Tab*] 875 mg PO BID 7 Days #14 tab chlordiazePOXIDE HCl [Librium*] 10 mg PO TID PRN 30 Days #90 cap PRN Reason: Alcohol withdrawal Nicotine [Nicoderm*] 21 mg TD Q24H #30 predniSONE [Deltasone] 20 mg PO BID 5 Days #10 tab Benzonatate [Tessalon Perle] 200 mg PO TID 10 Days #30 cap Thiamine HCl [Vitamin B-1*] 200 mg PO BID 30 Days #30 mg Physician Discharge Instructions: 53-year-old woman with a past medical history significant for COPD and hypertension presented to the emergency department complaining of shortness of breath and productive cough for unknown amount of days. The patient states her last COPD exacerbation was last year, she was noted to have sepsis, lactic acidosis, elevated liver enzymes, polycythemia vera, was treated with therapeutic phlebotomy while inpatient. Will need to follow-up with hematology /oncology after discharge. Ru after discharge, was treated with albuterol, steroids, antibiotics, oxygen while inpatient. She was noted to have hypokalemia potassium was replaced while inpatient. Echo was completed NORMAL LEFT VENTRICULAR SYSTOLIC FUNCTION, EJECTION FRACTION 60-65%, NORMAL WALL MOTION 2. NORMAL DIASTOLIC FUNCTION 3. ELEVATED FILLING PRESSURE (RIGHT ATRIAL P RESSURE GREATER THAN 20 mmHg) CT of the chest Minimal atelectasis left lower lobe. Lungs are generally clear. COPD. She will need to continue nebulizers, inhaler after discharge, will discharge home on p.o. cefdinir, prednisone 1 p.o. twice daily for 5 days, she reports having home O2 from a friend. History of tobacco use educated on tobacco cessation, will discharge home with nicotine patch. History of alcohol use, she needs to stop alcohol use, recommend alcohol cessation, discharged on Librium, she will need to follow-up with oncology for therapeutic phlebotomy after discharge. Assessment COPD exacerbation-discharged home on prednisone 1 p.o. twice daily for 5 days, patient has nebulizers at home, Sepsis, improved with IV antibiotic-discharged home on cefdinir take as directed until gone Lactic acidosis improved with IV antibiotics, Polycythemia vera, treated with therapeutic phlebotomy, will need to follow-up with hematology oncology outpatient for therapeutic phlebotomy Tobacco use educated on tobacco cessation discharge home with nicotine patch Alcohol use educate on alcohol cessation, discharged home on Librium Continue home medicines as previously prescribed GOAL: Clear understanding of disease process INSTRUCTIONS: Physician Discharge Instructions: -Follow-up with PCP in 1 to 2 weeks -Please call Dr. Mora at [phone] if any questions regarding hospital stay -Please call nursing station at [phone] if any nursing or medication questions -Return to the emergency room if symptoms worsen Diet: ADA, low sodium Activity: Fall precautions Followup: Jason Vazquez MD [ACTIVE - CAN ADMIT] - 1-2 Weeks Yesenia Mg FNP [Primary Care Provider] - 1-2 Weeks Time spent managing pt's care (in minutes): 55
[2024-08-07 12:05] LABS: Hematocrit 59.6 % (36.0-45.0); Hemoglobin 20.3 g/dL (12.0-15.0)
[2024-08-07] MEDS: PROMETH/COD 6.25/10MG SYRUP 5ML PO PRN (12:06)
--- NOTE | 2024-08-07 12:28 | P.PN ---
Subjective Date of Service: 08/07/24 Chief Complaint: COPD exacerbation Subjective: Improving (Patient is improving doing well she has polycythemia) Review of Systems General: Weakness Respiratory: Shortness of Breath Physical Examination - Vital Signs Temperature: 97.8 F Blood Pressure: 138/81 Pulse: 78 Respirations: 18 Pulse Ox (%): 96 - Physical Exam General: Alert, Oriented x3 Respiratory: Clear to auscultation bilaterally, Diminished Cardiovascular: No edema, Regular rate/rhythm - Studies Microbiology Data (last 24 hrs): 08/05/24 21:37 Blood - Blood Anaerobic Blood Culture - Final 08/05/24 21:37 Blood - Blood Anaerobic Blood Culture - Final Assessment And Plan - Current Problems (Diagnosis) (1) COPD exacerbation Current Visit: Yes Status: Acute Plan: Patient admitted with COPD exacerbation doing well stable for discharge signs oxygenation satisfactory she will need a long-acting bronchodilator able to go home on low-dose prednisone 10 mg twice a day with long-acting bronchodilator follow-up with me in 2 weeks cultures are negative (2) Polycythemia Current Visit: Yes Status: Acute Plan: Patient has significant polycythemia agree with phlebotomy ferritin level is normal level is also normal will need a workup for polycythemia erythropoietin level is pending also consider starting patient on some low-dose aspirin
[2024-08-07] MEDS ORDERED: predniSONE 20 MG TAB PO SCH (21:00)
== END 2024-08-07 13:39 | disposition home or self-care (01) | DRG 871 ==
LOC: ER 20:38 → 2ND 08-06 02:34
PROVIDERS: ADMIT Hospitalist; ATTEND Hospitalist
PROC: 4A033R1 Measurement of Arterial Saturation, Peripheral, Percutaneous Approach (ICD-10-PCS; principal; 2024-08-06)
DX: A41.9 Sepsis, unspecified organism (principal); J96.01 Acute respiratory failure with hypoxia; J44.1 Chronic obstructive pulmonary disease with (acute) exacerbation; E87.20 Acidosis, unspecified; I10 Essential (primary) hypertension; D45 Polycythemia vera; E87.6 Hypokalemia; F17.210 Nicotine dependence, cigarettes, uncomplicated; R74.01 Elevation of levels of liver transaminase levels; Z79.82 Long term (current) use of aspirin; Z11.52 Encounter for screening for COVID-19; Z79.52 Long term (current) use of systemic steroids; Z79.899 Other long term (current) drug therapy; Z90.710 Acquired absence of both cervix and uterus
CPT/HCPCS: 36415; 36600; 71045; 71275; 80048; 80053; 80061; 80076; 82607; 82668; 82728; 82805; 83605; 83735; 83880; 84100; 84443; 85014; 85018; 85025; 85610; 85730; 87040; 87804; 87811; 93005; 93306; 94760; 99195; J0696; J1650; J2919; J3475; J3480; J3535; J7030; J7040; J7050; J7613; J7644; Q9967

== ENCOUNTER 2024-09-29 22:17 | Inpatient (IN) | payer SELFPAY ==
--- OUTSIDE RECORDS SUMMARY | 2024-09-29 22:21 | XMS REPORT | Continuity of Care Document ---
Author Name Unknown Address [address] [place] [address] [facility] Address [address] [place] [address] Care Team Providers Care Manager Cable Name Role Phone Yesenia De Souza Primary [...] losartan 50 mg-hydrochl orothiazide 12.5 mg tablet 2023-10 00:00: 00 Yes mg Jonathan Farshad Rae ipratropium bromide 0.02 % solution for inhalation 2023-10 00:00: 00 Yes % Jonathan Rae albuterol sulfate 2.5 mg/3 mL (0.083 %) solution for nebulizatio n 2023-10 00:00: 00 Yes /3 mL (0.083 %) Jonathan Farshad Rae prednisone 20 mg tablet 2023-10 00:00: 00 Yes 1mg Jonathan Farshad Rae thiamine HCl (vitamin B1) 100 mg tablet 2023-10 00:00: 00 Yes 2mg Jonathan Farshad Rae amoxicillin 875 mg-potasspatti roper clavulanate 125 mg tablet 2023-10 00:00: 00 Yes 1mg Jonathan Rae benzonatate 200 mg capsule 2023-10 00:00: 00 Yes 1mg Jonathan Farshad Rae losartan 50 mg-hydrochl orothiazide 12.5 mg tablet 2024-1 0-18 00:00: 00 Yes mg Jonathan Rae losartan 50 mg-hydrochl orothiazide 12.5 mg tablet 0 9-20 00:00: 00 Yes mg Jonathan Rae ipratropium bromide 0.02 % solution for inhalation 0 9-20 00:00: 00 Yes % Jonathan Rae albuterol sulfate HFA 90 mcg/actuati on aerosol inhaler 0 9-20 00:00: 00 Yes mcg/act uation Jonathan Rae albuterol sulfate 2.5 mg/3 mL (0.083 %) solution for nebulizatio n 0 - 00:00: 00 Yes /3 mL (0.083 %) Jonathan Rae Dulera 100 mcg-5 mcg/actuati on HFA aerosol inhaler 0 -20 00:00: 00 Yes 2mcg/ac tuation Jonathan Rae losartan 50 mg-hydrochl orothiazide 12.5 mg tablet 7- 00:00: 00 Yes mg Jonathan Rae ipratropium bromide 0.02 % solution for inhalation 7- 00:00: 00 Yes % Jonathan Rae Dulera 100 mcg-5 mcg/actuati on HFA aerosol inhaler 0 7- 00:00: 00 Yes 2mcg/ac tuation Jonathan Rae albuterol sulfate HFA 90 mcg/actuati on aerosol inhaler 0 04-02 00:00: 00 Yes mcg/act uation Jonathan Rae albuterol sulfate 2.5 mg/3 mL (0.083 %) solution for nebulizatio n 0 04-02 00:00: 00 Yes /3 mL (0.083 %) Jonathan Rae Dulera 100 mcg-5 mcg/actuati on HFA aerosol inhaler 0 5-30 00:00: 00 Yes 1mcg/ac tuation Jonathan Rae losartan 50 mg-hydrochl orothiazide 12.5 mg tablet 5-29 00:00: 00 Yes mg Jonathan Rae USE 1 UNIT DOSE IN NEBULIZER 4 TIMES DAILY 0 4-06 00:00: 00 Yes 2 Jonathan Rae TAKE 1 TABLET TWICE DAILY. 2022-10 00:00: 00 02-06 00:00 :00 No 20 Jonathan Rae INHALE 2 PUFFS, BY MOUTH, TWICE DAILY. 2022-10 00:00: 00 02-06 00:00 :00 No [id number] Jonathan Rae TAKE 1 CAPSULE 3 TIMES DAILY NEEDED. 2022-10 00:00: 00 02-06 00:00 :00 No 200 Jonathanbilly Rae TAKE 1/2 TABLET BY MOUTH DAILY 2022-10 00:00: 00 02-06 00:00 :00 No 25 Jonathanbilly Rae TAKE 1 TABLET BY MOUTH ONCE DAILY 2022-10 00:00: 00 02-06 00:00 :00 No [id number] Jonathanbilly Rae TAKE 1 TABLET BY MOUTH ONCE DAILY 2022-10 00:00: 00 02-06 00:00 :00 No [id number] Jonathan Rae INHALE 1 TO 2 PUFFS EVERY 6 HOURS NEEDED. 2022-10 00:00: 00 02-06 00:00 :00 No [id number] Jonathan Rae TAKE 1 TABLET BY MOUTH ONCE DAILY 2022-10 00:00: 00 02-06 00:00 :00 No [id number] Jonathan Rae USE 1 UNIT DOSE EVERY 4-6 HOURS NEEDED FOR WHEEZING . 2022-10 00:00: 00 02-06 00:00 :00 No [id number] Jonathan Rae TAKE 1 TABLET DAILY DIRECTED. 2022-10 00:00: 00 02-06 00:00 :00 No 25 Jonathanbilly Rae USE 1 UNIT DOSE EVERY 4-6 HOURS NEEDED FOR WHEEZING . 2022-10 00:00: 00 02-06 00:00 :00 No [id number] Jonathan Farshad Rae USE 1 UNIT DOSE IN NEBULIZER 4 TIMES DAILY 2022-10 00:00: 00 02-06 00:00 :00 No 2 Jonathan Farshad Rae Vital Signs Vital Name Observation Time Observation Value Comments S tova BP Systolic 2024-08-09 10:50:00 Step billy Rae BP Diastolic 2024-08-09 10:50:00 [place] phen F Butch Weight Measured 2024-08-09 10:50:00 Jonathan F Butch Height Measured 2024-08-09 10:50:00 Jonathan F Butch Body Temperature 2024-08-09 10:50:00 Jonathan F Butch Heart Rate 2024-08-09 10:50:00 Ivon en F Butch Respiratory Rate 2024-08-09 10:50:00 Jonathan F Butch Height Measured 2024-04-09 17:13:00 Jonathan F Butch Body Temperature 2024-04-09 17:13:00 Jonathan F Btuch Heart Rate 2024-04-09 17:13:00 Ivon en F Btuch Respiratory Rate 2024-04-09 17:13:00 Jonathan F Butch [...] Jonathan F Butch Body Temperature 2023-09-30 15:33:00 Jonathan F Butch Heart Rate 2023-09-30 15:33:00 Ivon [...] BP Diastolic 2023-06-19 10:37:00 118 mm[Hg] Karson Rae Weight Measured 2023-06-19 10:37:00 118.80 pounds Jonathan Rae Height Measured 2023-06-19 10:37:00 46.46 inches Jonathan Rae Body Temperature 2023-06-19 10:37:00 98.30 degrees Jonathan Rae Heart Rate 2023-06-19 10:37:00 89.00 /min Ivon Rae Respiratory Rate 2023-06-19 10:37:00 18.00 /min Jonathan Rae Encounters Start Date/Time End Date/Time Encounter Type Admission Type Attending [facility] Care Department Encounter ID Source 2024-08-09 10:48:48 2024-08-09 10:48:48 Outpatient [facility] [id number] Jonathan Rae 2024-08-09 00:00:00 2024-08-09 00:00:00 Outpatient Visit [facility] [id number] Jonathan Rae 2024-07-17 13:46:29 2024-07-17 13:46:29 Outpatient [facility] [id number] Jonathan Rae 2024-07-16 13:44:41 2024-07-16 13:44:41 Outpatient [facility] [id number] Jonathan Rae 2024-06-27 16:51:10 2024-06-27 16:51:10 Outpatient [facility] [id number] Jonathan Rae 2024-06-27 00:00:00 2024-06-27 00:00:00 Outpatient Visit [facility] [id number] Jonathan Rae 2024-04-09 15:57:28 2024-04-09 15:57:28 Outpatient [facility] [id number] Jonathan Rae 2024-04-09 00:00:00 2024-04-09 00:00:00 Outpatient Visit [facility] [id number] Jonathan Rae 2023-08-09 12:53:09 2023-08-09 12:53:09 Outpatient [facility] [place] [id number] Jonathan Rae 2023-06-19 10:14:18 2023-06-19 10:14:18 Outpatient [facility] [id number] Jonathan Rae Results Test Description Test Time Test Comments Results Result Co mments Source Jonathan RaeLIPID [id number] 00:00:00* Test Item Value Reference Range Interpretation Comme nts CHOLESTEROL (test code = 2210) 168 MG/DL TRIGLYCERIDES (test code = 2232) 62 MG/DL HDL CHOLESTEROL (test code = 2220) 98 MG/DL CALC LDL CHOL (test code = 2237) 56 MG/DL RISK RATIO LDL/HDL (test cod e = 2238) 0.57 RATIO Jonathan Rae
[2024-09-29] MEDS ORDERED: NA CHLORIDE 0.9% 500 ML ONE (23:34)
[2024-09-29] MEDS ORDERED: IPRATROPIUM BROM 0.5MG/2.5ML ONE (23:34)
[2024-09-29] MEDS ORDERED: LEVALBUTEROL 1.25 MG/3 ML NEB ONE (23:34)
[2024-09-29] MEDS ORDERED: METHYLPREDNISOLONE 125 MG INJ ONE (23:34)
[2024-09-29] MEDS ORDERED: MAGNESIUM SULFATE 1 gm IVPB 1 GM/100 ML BAG IV ONE (23:35)
[2024-09-29 23:48] LABS: Absolute Basophils 0.1 K/uL (0-0.5); Absolute Eosinophils 0.5 K/uL (0-0.5); Absolute Lymphocytes (CBC) 1.8 K/uL (0.7-4.9); Absolute Monocytes 1.3 K/uL (0.1-1.3); Absolute Neutrophil 7.2 K/uL (1.8-8.0); Eosinophils % 4.4 % (0-4.4); Hematocrit 57.4 % (36.0-45.0); Hemoglobin 19.3 g/dL (12.0-15.0); Lymphocytes % 16.6 % (15.3-44.8); MCH 41.9 pg (27.0-35.0); MCHC 33.6 g/dL (32.0-36.0); MCV 124.6 fL (80-100); MPV 7.9 fL (7.6-11.3); Monocytes % 11.9 % (3.3-12.3); Neutrophils % 66.1 % (41.7-73.7); Nucleated Red Blood Cells % 0.1 % (0-0); Platelets 193 thou/uL (152-406); RBC Red Blood Cell Count 4.61 M/uL (3.86-4.86); Red Cell Distribution Width 14.6 % (12.1-15.2)
[2024-09-29 23:56] LABS: SARS-CoV-2 Antigen CONTROL BLUE LINE VIS/BG OK; SARS-CoV-2 Antigen Rapid Res Negative (Negative)
[2024-09-30 00:03] LABS: Albumin 3.5 g/dL (3.4-5.0); Albumin/Globulin Ratio 0.9 (1.1-1.8); Anion Gap 9.3 mEq/L (5.0-15.0); Bilirubin Total 0.8 mg/dL (0.2-1.0); Potassium 3.3 mEq/L (3.5-5.1); Protein, Total 7.5 g/dL (6.4-8.2)
[2024-09-30 00:05] LABS: PT Prothrombin Time 9.8 SECONDS (9.4-12.5); PTT, Activated Partial Thromb 33.9 SECONDS (24.3-36.9); Protime INR 0.87
[2024-09-30 00:33] LABS: Blood Morphology Comment NOTED (NOT SEEN); Macrocytosis 2+; Platelet Estimate ADEQ; White Blood Cell Scan OK (OK)
--- NOTE | 2024-09-30 00:46 | EDPHYS ---
Physician Documentation [facility] Name: Kelsea Petty Age: 53 yrs Sex: Female : 1970 Arrival Date: 09/29/2024 Time: 22:17 Bed 15 Private MD: ED Physician Reynold Armendariz HPI: 09/29 22:23 This 53 yrs old Female presents to ER via Unassigned with complaints of sob. rn 22:23 The patient has shortness of breath at rest, with light activity. Onset: The rn symptoms/episode began/occurred 3 day(s) ago. Duration: The symptoms are intermittent. The patient's shortness of breath is aggravated by coughing, exertion, light activity. Severity of symptoms: At their worst the symptoms were moderate in the emergency department the symptoms have improved. The patient has experienced similar episodes in the past. Patient reports feels sick for the last 3 days, feels sinus pressure and green nasal drainage, also shortness of breath for the last 3 days. Has COPD. Taking nebulizer treatments at home and on oxygen and does not feel like it is helping. Oxygen saturation was in the 70s per EMS, improved with nonrebreather facemask.. Historical: - Allergies: 09/30 01:59 NSAIDS; br2 - PMHx: 01:59 Hypertensive disorder; Chronic obstructive lung disease; br2 - PSHx: 01:59 Total abdominal hysterectomy; Tonsillectomy; br2 - Immunization history:: Adult Immunizations not up to date. - Infectious Disease History:: Denies. - Family history:: not pertinent. - Hospitalizations: : No recent hospitalization is reported. - Social history:: Smoking status: Patient reports the use of cigarette tobacco products, smokes one-half pack cigarettes per day, Patient uses alcohol, occasionally. ROS: 09/29 22:23 Constitutional: Negative for fever, chills, and weight loss, ENT: Positive for sinus rn pressure Neck: Negative for injury, pain, and swelling, Cardiovascular: Negative for chest pain, palpitations, and edema, Respiratory: Positive for cough and shortness of breath Abdomen/GI: Negative for abdominal pain, nausea, vomiting, diarrhea, and constipation, MS/Extremity: Negative for injury and deformity, Skin: Negative for injury, rash, and discoloration, Neuro: Negative for headache, weakness, numbness, tingling, and seizure, Exam: 22:23 Constitutional: This is a well developed, well nourished patient who is awake, alert, rn mild tachypnea Head/Face: Normocephalic, atraumatic. Cardiovascular: Tachycardic, regular. No pulse deficits. Respiratory: Mild tachypnea, expiratory wheezing, no retractions, speaking full sentences Abdomen/GI: Soft, non-tender Neuro: Awake and alert, GCS 15 09/30 00:32 ECG was reviewed by the Attending Physician. rn Vital Signs: 09/29 23:08 BP 116 / 70; Pulse 93; Resp 18; Temp 98.1; Pulse Ox 92% on 3 lpm NC; Weight 54.43 kg; br2 Height 5 ft. 3 in. ; Pain 0/10; 09/30 00:45 BP 109 / 56; Pulse 88; Resp 18; Pulse Ox 90% ; br2 01:30 BP 105 / 65; Pulse 91; Resp 18; Pulse Ox 90% on 3 lpm NC; br2 07:07 BP 99 / 64; Pulse 86; Resp 18; Pulse Ox 99% on R/A; br2 09/29 23:08 Body Mass Index 21.26 (54.43 kg, 160.02 cm) br2 09/29 23:08 Pain Scale: Adult br2 MDM: 09/29 22:20 Medical Screening Exam initiated rn 09/30 00:43 Differential diagnosis: Bronchitis Chronic Obstructive Pulmonary Disease Myocardial rn Infarction pneumonia, Pneumothorax pulmonary edema. Data reviewed: vital signs, nurses notes, lab test result(s), EKG, radiologic studies, plain films, and as a result, I will admit patient. Consideration of Admission/Observation Patient was admitted/placed on observation. Escalation of care including admission/observation considered. Counseling: I had a detailed discussion with the patient and/or guardian regarding the historical points, exam findings, and any diagnostic results supporting the discharge/admit diagnosis, lab results, radiology results, the need for further work-up and treatment in the hospital. Special discussion:. ED course: Chest x-ray images negative for pneumonia per my interpretation. Patient overall feeling better but still tachypneic and reports dyspnea. Something, likely infectious etiology, triggered COPD exacerbation. Will admit to hospitalist service for further care.. 00:43 ED course: I personally spent 35 minutes engaged in work directly related to the rn individual patient's care. This does not include any time spent performing procedures. The patient has been deemed critically ill because of moderate to severe COPD exacerbation with hypoxemia requiring multiple nebulizer treatments, IV steroids, IV magnesium and septic workup as well as admission to hospital. 09/29 22:20 Order name: Blood Culture Adult (2) 09/29 22:20 Order name: CBC with Diff; Complete Time: 00:35 rn 09/29 22:20 Order name: CMP; Complete Time: 00:31 rn 09/29 22:20 Order name: Lactate w/ 2H reflex if indic.; Complete Time: 00:31 rn 09/29 22:20 Order name: Protime (+inr); Complete Time: 00:31 09/29 22:20 Order name: Ptt, Activated; Complete Time: 00:31 09/29 22:20 Order name: Flu; Complete Time: 07:06 09/29 22:20 Order name: SARS-COV-2 Antigen Rapid; Complete Time: 00:31 09/29 22:21 Order name: BNP; Complete Time: 00:31 09/29 23:55 Order name: CBC Smear Scan; Complete Time: 00:35 EDND 09/30 02:47 Order name: Urinalysis w/ reflexes EDND 09/30 02:47 Order name: CBC with Automated Diff EDND 09/30 02:47 Order name: Comprehensive Metabolic Panel [facility] 09/30 02:47 Order name: Magnesium [facility] 09/30 02:47 Order name: Phosphorus [facility] 09/30 02:47 Order name: Thyroid Stimulating Hormone [facility] 09/29 22:20 Order name: Chest Single View XRAY 09/30 02:48 Order name: Respiratory Therapy Consult [facility] 09/29 22:20 Order name: Accucheck; Complete Time: 07:17 rn 09/29 22:20 Order name: Cardiac monitoring; Complete Time: 23:49 rn 09/29 22:20 Order name: EKG - Nurse/Tech; Complete Time: 00:04 09/29 22:20 Order name: IV Saline Lock - Large Bore; Complete Time: 23:49 rn 09/29 22:20 Order name: Labs collected and sent; Complete Time: 23:49 rn 09/29 22:20 Order name: O2 Per Protocol; Complete Time: 23:49 rn 09/29 22:20 Order name: O2 Sat Monitoring; Complete Time: 23:49 rn 09/29 22:20 Order name: Vital Signs; Complete Time: :49 rn EC:32 Rate is 92 beats/min. Rhythm is regular. QRS [place] is Normal. MS interval is normal. QRS rn interval is normal. QT interval is normal. No Q waves. T waves are Normal. No ST changes noted. Clinical impression: Normal ECG. Interpreted by me. Reviewed by me. Administered Medications: 09/29 23:42 Drug: MethylPrednisoLONE IVP 125 mg IVP once Route: IVP; Site: left antecubital; br2 09/30 01:15 Follow up: Response: No adverse reaction br2 09/29 23:42 Drug: Levalbuterol Inhalation 1.25 mg Inhalation once Route: Inhalation; br2 09/30 00:30 Follow up: Response: No adverse reaction br2 09/29 23:42 Drug: Ipratropium Inhalation Aerosol 0.5 mg Inhalation once Route: Inhalation; br2 09/30 00:30 Follow up: Response: No adverse reaction br2 09/29 23:42 Drug: Magnesium Sulfate IVPB 1 grams IVPB once over 1 hrs Route: IVPB; Infused Over: 1 br2 hrs; Site: left antecubital; 09/30 00:45 Follow up: Response: No adverse reaction; IV Status: Completed infusion; IV Intake: br2 100ml 09/29 23:42 Drug: NS 0.9% IV 500 ml 500 ml IV at 1 bolus once; to be given as a bolus over 30 br2 minutes Volume: 500 ml; Route: IV; Rate: 1 bolus; Site: left antecubital; 09/30 00:15 Follow up: Response: No adverse reaction; IV Status: Completed infusion; IV Intake: br2 500ml 01:32 Drug: Rocephin IV 1 grams IV at calculated rate once; Given slow IV push per pharmacy br2 instructions Route: IV; Rate: calculated rate; Site: left antecubital; 02:00 Follow up: IV Status: Completed infusion; IV Intake: 10ml br2 01:32 Drug: Zithromax IVPB 500 mg IVPB once over 1 hrs; mix in 250 mL NS Route: IVPB; Infused br2 Over: 1 hrs; Site: left antecubital; 03:00 Follow up: Response: No adverse reaction; IV Status: Completed infusion; IV Intake: br2 250ml Disposition: 00:43 Critical Care:. 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 Total time: 35 minutes rn Signatures: Dispatcher [employer] EDMS Reynold Armendariz MD MD rn Aguilar, Jose RN RN [email or web address] Caren Hayward RN RN Beth Fam PA-C PAParamjit [email or web address] Daisy Bolaños RN RN br2 Corrections: (The following items were deleted from the chart) 02:20 00:45 Telemetry/MedSurg (Inpatient) rn vc1 02:20 00:45 rn vc1 13:06 02:20 [facility] ER HOLD vc1 ja1 13:06 02:20 ERHOLD- vc1 ja1 13:34 13:06 209 ja1 sb4 13:34 13:34 230 sb4 sb4
--- NOTE | 2024-09-30 00:46 | ER ---
Nurse's Notes [facility] Name: Kelsea Petty Age: 53 yrs Sex: Female : 1970 Arrival Date: 09/29/2024 Time: 22:17 Bed 15 Private MD: Diagnosis: COPD/ Chronic obstructive pulmonary disease with (acute) exacerbation Presentation: 09/29 23:08 Chief complaint: Patient states: C/O SOB...HAS BEEN DEALING WITH FLS FOR THE LAST FEW br2 DAYS. Coronavirus screen: Client denies travel out of the [place] in the last 14 days. Ebola Screen: Patient denies exposure to infectious person. Patient denies travel to an Ebola-affected area in the 21 days before illness onset. Initial Sepsis Screen: Does the patient meet any 2 criteria? HR > 90 bpm. Does the patient have a suspected source of infection? No. Patient's initial sepsis screen is negative. Risk Assessment: Do you want to hurt yourself or someone else? Patient reports no desire to harm self or others. Onset of symptoms is unknown. 23:08 Method Of Arrival: EMS: [facility] br2 23:08 Acuity: KULWINDER 3 br2 Triage Assessment: 23:08 General: Appears uncomfortable, Behavior is calm, cooperative. Pain: Denies pain. EENT: br2 No signs and/or symptoms were reported regarding the EENT system. Neuro: Bob Agitation-Sedation Scale (RASS): 0 - Alert and Calm Level of Consciousness is awake, alert, obeys commands, Oriented to person, place, time, situation. Cardiovascular: Capillary refill < 3 seconds. Respiratory: Airway is patent Respiratory effort is shallow, Respiratory pattern is regular, symmetrical, Breath sounds are diminished Breath sounds with wheezes bilaterally. Historical: - Allergies: 09/30 01:59 NSAIDS; br2 - PMHx: 01:59 Hypertensive disorder; Chronic obstructive lung disease; br2 - PSHx: 01:59 Total abdominal hysterectomy; Tonsillectomy; br2 - Immunization history:: Adult Immunizations not up to date. - Infectious Disease History:: Denies. - Family history:: not pertinent. - Hospitalizations: : No recent hospitalization is reported. - Social history:: Smoking status: Patient reports the use of cigarette tobacco products, smokes one-half pack cigarettes per day, Patient uses alcohol, occasionally. Screenin/23 23:08 [facility] ED Fall Risk Assessment (Adult) History of falling in the last 3 months, br2 including since admission No falls in past 3 months (0 pts) Confusion or Disorientation No (0 pts) Intoxicated or Sedated No (0 pts) Impaired Gait No (0 pts) Mobility Assist Device Used No (0 pt) Altered Elimination No (0 pt) Score/Fall Risk Level 0 - 2 = Low Risk Oriented to surroundings, Maintained a safe environment. Abuse screen: Denies threats or abuse. Denies injuries from another. Nutritional screening: No deficits noted. Tuberculosis screening: No symptoms or risk factors identified. Assessment: 23:08 Reassessment: SEE TRIAGE ASSESSMENT. br2 Vital Signs: 23:08 BP 116 / 70; Pulse 93; Resp 18; Temp 98.1; Pulse Ox 92% on 3 lpm NC; Weight 54.43 kg; br2 Height 5 ft. 3 in. ; Pain 0/10; 09/30 00:45 BP 109 / 56; Pulse 88; Resp 18; Pulse Ox 90% ; br2 01:30 BP 105 / 65; Pulse 91; Resp 18; Pulse Ox 90% on 3 lpm NC; br2 07:07 BP 99 / 64; Pulse 86; Resp 18; Pulse Ox 99% on R/A; br2 09/29 23:08 Body Mass Index 21.26 (54.43 kg, 160.02 cm) br2 12 23:08 Pain Scale: Adult br2 ED Course: 09/29 22:20 Patient arrived in ED. rn 22:20 Reynold Armendariz MD is Attending Physician. rn 22:31 Daisy Bolaños RN is Primary Nurse. br2 22:55 Chest Single View XRAY In Process Unspecified. EDMS 23:08 Maintain EMS IV. Site clean \T\ dry. Gauge \T\ site: 20G LEFT A/C. Flushed with 10 mL NS. br 2 23:08 Patient has correct armband on for positive identification. Placed in gown. Bed in low br2 position. Call light in reach. Side rails up X 1. Provided Education on: PLAN OF CARE. 23:08 Arm band placed on. br2 23:29 Triage completed. br2 09/30 00:04 Blood Culture Adult (2) Sent. br2 00:45 Ricardo Armendariz MD is Hospitalizing Provider. rn 07:08 Primary Nurse role handed off by Daisy Bolaños RN vc1 07:08 Daisy Bolaños RN is Primary Nurse. br2 Administered Medications: 09/29 23:42 Drug: MethylPrednisoLONE IVP 125 mg IVP once Route: IVP; Site: left antecubital; br2 09/30 01:15 Follow up: Response: No adverse reaction br2 09/29 23:42 Drug: Levalbuterol Inhalation 1.25 mg Inhalation once Route: Inhalation; br2 09/30 00:30 Follow up: Response: No adverse reaction br2 09/29 23:42 Drug: Ipratropium Inhalation Aerosol 0.5 mg Inhalation once Route: Inhalation; br2 09/30 00:30 Follow up: Response: No adverse reaction br2 09/29 23:42 Drug: Magnesium Sulfate IVPB 1 grams IVPB once over 1 hrs Route: IVPB; Infused Over: 1 br2 hrs; Site: left antecubital; 09/30 00:45 Follow up: Response: No adverse reaction; IV Status: Completed infusion; IV Intake: br2 100ml 09/29 23:42 Drug: NS 0.9% IV 500 ml 500 ml IV at 1 bolus once; to be given as a bolus over 30 br2 minutes Volume: 500 ml; Route: IV; Rate: 1 bolus; Site: left antecubital; 09/30 00:15 Follow up: Response: No adverse reaction; IV Status: Completed infusion; IV Intake: br2 500ml 01:32 Drug: Rocephin IV 1 grams IV at calculated rate once; Given slow IV push per pharmacy br2 instructions Route: IV; Rate: calculated rate; Site: left antecubital; 02:00 Follow up: IV Status: Completed infusion; IV Intake: 10ml br2 01:32 Drug: Zithromax IVPB 500 mg IVPB once over 1 hrs; mix in 250 mL NS Route: IVPB; Infused br2 Over: 1 hrs; Site: left antecubital; 03:00 Follow up: Response: No adverse reaction; IV Status: Completed infusion; IV Intake: br2 250ml Medication: 09/29 22:23 VIS not applicable for this client. br2 Intake: 09/30 00:15 IV: 500ml; Total: 500ml. br2 00:45 IV: 100ml; Total: 600ml. br2 02:00 IV: 10ml; Total: 610ml. br2 03:00 IV: 250ml; Total: 860ml. br2 Outcome: 00:45 Decision to Hospitalize by Provider. rn 07:08 Patient left the ED. vc1 14:48 Patient left the ED. kc6 Signatures: Dispatcher [employer] EDMS Reynold Armendariz MD MD rn Calcote, Vanessa, RN RN vc1 Veronica Blankenship RN RN kc6 Daisy Bolaños RN RN br2
[2024-09-30] MEDS ORDERED: NA CHLORIDE 0.9% 250 ML ONE ×2 (01:04→08:31)
[2024-09-30] MEDS ORDERED: AZITHROMYCIN 500 MG INJ IVPB ONE ×2 (01:04→08:31)
[2024-09-30] MEDS ORDERED: CEFTRIAXONE 1000 MG/VIAL ONE (01:04)
[2024-09-30] MEDS ORDERED: ACETAMINOPHEN 325 MG TABLET PO PRN (02:42)
[2024-09-30] MEDS ORDERED: chlordiazePOXIDE HCl 5 MG CAP PO PRN (02:46)
--- NOTE | 2024-09-30 02:53 | P.HP ---
Certification for Inpatient With expected LOS: <2 Midnights <Lyla Clarke - Last Filed: 09/30/24 02:48> Patient History Date of Service: 09/30/24 Reason for admission: COPD exacerbation History of Present Illness: 53-year-old woman with a past medical history significant for COPD not on home oxygen, HTN, GERD, and HDL presented to the emergency room complaining of shortness of breath x 3 days. The patient states she has a history of COPD exacerbations, and her last one was in July 2024. She states she has never been intubated for any past COPD exacerbations. The patient is a current smoker, and reports smoking half a pack a day. She states she has a productive cough that she believes is now "getting worse". The patient states that she has attempted to take an [id number] cough medication, and reports minimal improvement. Nothing worsens her symptoms. She denies urinary symptoms, and fever. Home medications list reviewed: Yes - Past Medical/Surgical History Diabetic: No -: COPD -: Hypertension -: HDL -: GERD -: -: Hysterectomy -: tonsilectomy -: teeth surgery Psychosocial/ Personal History: Lives at home with family - Family History Mother -: Stroke dad -: Heart disease, Hypertension Notes: IA - Social History Smoking Status: Current every day smoker (1/2 pack daily) Counseled patient to stop smoking for: less than 10 minutes Alcohol use: No CD- Drugs: No Caffeine use: Yes <Lyla Clarke - Last Filed: 09/30/24 02:48> Date of Service: 09/30/24 <Ricardo Armendariz - Last Filed: 09/30/24 11:02> Allergies strawberry Adverse Reaction (Verified 08/06/24 04:27) Anaphylaxis Home Medications: Losartan/Hydrochlorothiazide [Losartan-Hctz 50-12.5 mg Tab] 1 tab PO DAILY 09/22/23 Omeprazole [Prilosec] 20 mg PO DAILY 09/22/23 Mometasone/Formoterol [Dulera 100 Mcg/5 Mcg Inhaler] 60 puff IH BID #1 inhaler 09/25/23 Albuterol Neb [Proventil 0.083% Neb Soln] 1 puff NEB QID 08/06/24 Albuterol Sulfate [Albuterol Sulfate Hfa] 1 puff IH Q4HR PRN 08/06/24 Aspirin 81 mg PO DAILY 08/06/24 Ipratropium [place] 1 puff IH QID 08/06/24 Albuterol Neb [Proventil 0.083% Neb Soln] 2.5 mg NEB [id number] amp 08/07/24 Amox/Clavulanate [Augmentin 875-125 Tab*] 875 mg PO BID 7 Days #14 tab 08/07/24 Benzonatate [Tessalon Perle] 200 mg PO TID 10 Days #30 cap 08/07/24 Nicotine [Nicoderm*] 21 mg TD Q24H #30 08/07/24 Thiamine HCl [Vitamin B-1*] 200 mg PO BID 30 Days #30 mg 08/07/24 chlordiazePOXIDE HCl [Librium*] 10 mg PO TID PRN 30 Days #90 cap 08/07/24 predniSONE [Deltasone] 20 mg PO BID 5 Days #10 tab 08/07/24 Review of Systems Respiratory: Cough (Productive), Shortness of Breath, SOB with Excertion <Clarke,Lyla Q - Last Filed: 09/30/24 02:48> Physical Examination - Vital Signs Temperature: 98.1 F Blood Pressure: 99/72 Pulse: 86 Respirations: 18 Pulse Ox (%): 100 (4 L of oxygen via nasal cannula) - Physical Exam General: Alert, Oriented x3 HEENT: Atraumatic, Normocephalic Neck: JVD not distended Respiratory: Crackles/rales (Bilaterally), Expiratory wheezes Cardiovascular: No edema, Regular rate/rhythm, No gallops, No rubs, No murmurs Gastrointestinal: Normal bowel sounds, Non-distended, No tenderness Musculoskeletal: No swelling, No erythema, No tenderness, No warmth Neurological: Normal speech, Normal strength at 5/5 x4 extr, Sensation intact - Studies Laboratory Data (last 24 hrs) 09/29/24 09/29/24 09/29/24 22:20 22:20 22:20 WBC 10.90 Hgb 19.3 H Hct 57.4 H Plt Count 193 PT 9.8 INR 0.87 APTT 33.9 Sodium 137 Potassium 3.3 L BUN 16 Creatinine 0.81 Glucose 105 Total Bilirubin 0.8 AST 30 ALT 33 Alkaline Phosphatase 155 H <Clarke,Lyla Q - Last Filed: 09/30/24 02:48> - Studies Laboratory Data (last 24 hrs) 09/29/24 09/29/24 09/29/24 22:20 22:20 22:20 WBC 10.90 Hgb 19.3 H Hct 57.4 H Plt Count 193 PT 9.8 INR 0.87 APTT 33.9 Sodium 137 Potassium 3.3 L BUN 16 Creatinine 0.81 Glucose 105 Total Bilirubin 0.8 AST 30 ALT 33 Alkaline Phosphatase 155 H Microbiology Data (last 24 hrs): 09/29/24 22:20 Nasopharnyx Influenza Type A Antigen Screen - Final 09/29/24 22:20 Nasopharnyx Influenza Type B Antigen Screen - Final <Ricardo Armendariz - Last Filed: 09/30/24 11:02> Assessment and Plan - Problems (Diagnosis) (1) COPD exacerbation Current Visit: No Status: Acute (2) HTN (hypertension) Current Visit: Yes Status: Acute (3) GERD (gastroesophageal reflux disease) Current Visit: Yes Status: Acute (4) Dyslipidemia (high LDL; low HDL) Current Visit: Yes Status: Acute - Plan COPD exacerbation: Admit to floor DuoNebs as needed ordered Respiratory therapy consulted Continue with oxygen via nasal cannula Solu-Medrol 60 every 6 hours ordered IV azithromycin ordered HTN: Resumed home medication GERD: Resumed home medication HDL: Resumed home medication - Advance Directives Does patient have a Living Will: No Does patient have a Durable POA for Healthcare: No <Lyla Clarke Q - Last Filed: 09/30/24 02:48> - Plan DOS (09/30/24) Discussed case with THIAGO Clarke and independently reviewed EMR at time of admission Agree with plan of care as noted above. acute hypoxemic respiratory failure secondary to acute on chronic COPD exacerbation nebs, steroids, azithromycin wean O2 as tolerated no evidence of bacterial infection at this time confirm home meds / inhalers, restart <Ricardo Armendariz - Last Filed: 09/30/24 11:02>
[2024-09-30] MEDS: NICOTINE 21 MG/PAT TD SCH (03:00)
[2024-09-30] MEDS: NA CHLORIDE 0.9% 1,000 ML IV SCH ×2 (03:00→16:23)
[2024-09-30] MEDS ORDERED: GUAIFENESIN/CODEINE 5ML UCUP ONE (04:12)
[2024-09-30] MEDS ORDERED: NA CHLORIDE 0.9% 1,000 ML ONE (04:12)
[2024-09-30] MEDS ORDERED: NICOTINE 21 MG/PAT TD ONE (04:12)
[2024-09-30] MEDS: GUAIFENESIN/CODEINE 5ML UCUP PO PRN (04:19)
[2024-09-30 04:46] VITALS: BMI 21.2
--- NOTE | 2024-09-30 05:20 | RAD REPORT ---
XR CHEST 1 VIEW CLINICAL INDICATION: COPD;Dyspnea COMPARISON: None FINDINGS: SUPPORT DEVICES: None LUNGS/PLEURAL SPACES: Mild hazy opacities at bilateral lung bases, possibly atelectasis. No pleural e ffusion. No pneumothorax. HEART/MEDIASTINUM: Within normal range. BONES/UPPER ABDOMEN/SOFT TISSUES: No acute findings. IMPRESSION: Mild hazy opacities at bilateral lung bases, possibly atelectasis. Electronically signed by: Edith Goldman MD 09/29/2024 11:52 PM [facility] Due to temporary technical issues with the PACS/H-umus reporting system, reports are being jaylyn d by the in-house radiologist without review as a courtesy to ensure prompt reporting the interpreting radiologist is fully responsible for the content of the report. Transcribed Date/Time: 09/30/2024 5:20 AM
[2024-09-30] MEDS: METHYLPREDNISOLONE 125 MG INJ IV SCH (06:00)
[2024-09-30] MEDS: IPRATROPIUM BROM 0.5MG/2.5ML NEB SCH (07:00)
[2024-09-30 07:08] LABS: Absolute Lymphocytes (CBC) 0.5 K/uL (0.7-4.9); Absolute Monocytes 0.1 K/uL (0.1-1.3); Absolute Neutrophil 5.5 K/uL (1.8-8.0); Basophils % 0.5 % (0-1.3); Hematocrit 52.9 % (36.0-45.0); Lymphocytes % 7.8 % (15.3-44.8); MCH 42.2 pg (27.0-35.0); MCV 124.1 fL (80-100); MPV 7.5 fL (7.6-11.3); Monocytes % 1.2 % (3.3-12.3); Neutrophils % 90.5 % (41.7-73.7); Nucleated Red Blood Cells % 0.2 % (0-0); Platelets 208 thou/uL (152-406); RBC Red Blood Cell Count 4.27 M/uL (3.86-4.86); Red Cell Distribution Width 14.4 % (12.1-15.2)
[2024-09-30 07:17] LABS: Albumin 3.1 g/dL (3.4-5.0); Albumin/Globulin Ratio 0.9 (1.1-1.8); Anion Gap 5.5 mEq/L (5.0-15.0); Bilirubin Total 0.6 mg/dL (0.2-1.0); Globulin 3.6 g/dL (2.3-3.5); Protein, Total 6.7 g/dL (6.4-8.2); Thyroid Stimulating Hormone 0.506 uIU/mL (0.358-3.740)
[2024-09-30 07:18] LABS: Magnesium 1.9 mg/dL (1.6-2.4); Potassium 4.5 mEq/L (3.5-5.1)
[2024-09-30] MEDS ORDERED: IPRATROPIUM BROM 0.5MG/2.5ML ONE (08:30)
[2024-09-30] MEDS ORDERED: BENZONATATE 100 MG CAP PO ONE (08:31)
[2024-09-30] MEDS ORDERED: LOSARTAN POTASSIUM 50 MG TABLET ONE (08:31)
[2024-09-30] MEDS ORDERED: ENOXAPARIN 40 MG/0.4 ML SQ ONE (08:31)
[2024-09-30] MEDS ORDERED: PANTOPRAZOLE 40MG TABLET PO ONE (08:31)
[2024-09-30] MEDS: PANTOPRAZOLE 40MG TABLET PO SCH (09:00)
[2024-09-30] MEDS: BENZONATATE 100 MG CAP PO SCH (09:00)
[2024-09-30] MEDS: ENOXAPARIN 40 MG/0.4 ML SQ SCH (09:00)
[2024-09-30] MEDS: hydroCHLOROthiazide 12.5 MG CAP PO SCH (09:00)
[2024-09-30] MEDS: LOSARTAN POTASSIUM 50 MG TABLET PO SCH (09:00)
[2024-09-30] MEDS: AZITHROMYCIN IV 500 MG in NA CHLORIDE 0.9% 250 ML IVPB SCH (09:00)
[2024-09-30] MEDS ORDERED: METHYLPREDNISOLONE 40 MG INJ ONE (12:59)
[2024-09-30] MEDS: ASPIRIN EC 81 MG TAB PO ONE (16:24)
[2024-10-01] MEDS: ALBUTEROL 2.5 MG/3 ML NEB SOL NEB PRN (01:31)
[2024-10-01 06:20] LABS: Absolute Lymphocytes (CBC) 0.8 K/uL (0.7-4.9); Absolute Monocytes 0.3 K/uL (0.1-1.3); Absolute Neutrophil 4.4 K/uL (1.8-8.0); Basophils % 0.3 % (0-1.3); Hemoglobin 17.7 g/dL (12.0-15.0); Lymphocytes % 14.2 % (15.3-44.8); MCH 42.5 pg (27.0-35.0); MPV 7.5 fL (7.6-11.3); Monocytes % 5.6 % (3.3-12.3); Neutrophils % 79.9 % (41.7-73.7); Nucleated Red Blood Cells % 0.6 % (0-0); Platelets 216 thou/uL (152-406); RBC Red Blood Cell Count 4.16 M/uL (3.86-4.86); Red Cell Distribution Width 14.1 % (12.1-15.2)
[2024-10-01] MEDS ORDERED: FUROSEMIDE 40 MG/4 ML VIAL IV ONE (08:00)
[2024-10-01] MEDS: ASPIRIN EC 81 MG TAB PO SCH (10:26)
[2024-10-01 11:04] VITALS: O2SAT 93
[2024-10-01] MEDS ORDERED: METHYLPREDNISOLONE 40 MG INJ IV SCH (12:00)
[2024-10-01] MEDS: FUROSEMIDE 40 MG/4 ML VIAL IV ONE (12:14)
[2024-10-01 12:41] VITALS: BP 124/79; TEMP 97.9
--- NOTE | 2024-10-01 15:32 | P.DS ---
Admission Date: 09/30/24 Discharge Date: 10/01/24 Disposition: ROUTINE DISCHARGE Discharge Condition: FAIR Reason for Admission: COPD exacerbation Brief History of Present Illness: 53-year-old woman with a past medical history significant for COPD not on home oxygen, HTN, GERD, and HDL presented to the emergency room complaining of shortness of breath x 3 days. The patient states she has a history of COPD exacerbations, and her last one was in July 2024. She states she has never been intubated for any past COPD exacerbations. The patient is a current smoker, and reports smoking half a pack a day. She states she has a productive cough that she believes is now "getting worse". The patient states that she has attempted to take an [id number]-[id number] cough medication, and reports minimal improvement. Nothing worsens her symptoms. She denies urinary symptoms, and fever. - Physical Exam General: Alert, Oriented x3 HEENT: Atraumatic, Normocephalic Neck: JVD not distended Respiratory: equal, unlabored, rhonchi Cardiovascular: No edema, Regular rate/rhythm, Gastrointestinal: Normal bowel sounds, Non-distended, Musculoskeletal: No swelling, No erythema, No warmth Neurological: Normal speech, Normal strength at 5/5 x4 Hospital Course: 53-year-old woman with a past medical history significant for COPD not on home oxygen, HTN, GERD, and HDL presented to the emergency room complaining of shortness of breath x 3 days. The patient states she has a history of COPD exacerbations, and her last one was in July 2024. She was treated with COPD exacerbation, room air sats 89 RA, patient reports breathing improved, request to DC home today, tolerating diet, she refuses to wait on Home 02 to be arranged, she follow up PCP at 0800 for follow up apt. She reports using neighbors home 02 as need. DC medications, Cefdinir 1 po BID, x 5 days prednisione 1 po bid for 5 days She reports having neb/ inhalers at home Assessment COPD exacerbation-discharged home on prednisone 1 p.o. twice daily for 5 days, patient has nebulizers at home, macrocytic anemia/Polycythemia vera, treated with therapeutic phlebotomy, will need to follow-up with hematology oncology outpatient for therapeutic phlebotomy Tobacco use educated on tobacco cessation discharge home with nicotine patch Alcohol use educate on alcohol cessation, Continue home medicines as previously prescribed GOAL: Clear understanding of disease process INSTRUCTIONS: Physician Discharge Instructions: -follow up with Dr Vazquez after discharge for theraputic phelobotomy Follow up with pulmomay after discharge -Follow-up with PCP in 1 to 2 weeks -Please call Dr. Mora at [phone] if any questions regarding hospital stay -Please call nursing station at [phone] if any nursing or medication questions -Return to the emergency room if symptoms worsen Diet: ADA, low sodium Activity: Fall precautions Vital Signs/Physical Exam: Temp Pulse Resp BP Pulse Ox 97.9 F 94 H 16 124/79 91 10/01/24 12:00 10/01/24 12:00 10/01/24 12:00 10/01/24 12:00 10/01/24 12:00 Laboratory Data at Discharge: WBC 5.60 thou/uL (4.3-10.9) 10/01/24 05:39 Hgb 17.7 g/dL (12.0-15.0) H 10/01/24 05:39 Hct 52.0 % (36.0-45.0) H 10/01/24 05:39 Plt Count 216 thou/uL (152-406) 10/01/24 05:39 PT 9.8 SECONDS (9.4-12.5) 09/29/24 22:20 INR 0.87 09/29/24 22:20 APTT 33.9 SECONDS (24.3-36.9) 09/29/24 22:20 Sodium 138 mEq/L (136-145) 10/01/24 05:39 Potassium 4.0 mEq/L (3.5-5.1) 10/01/24 05:39 BUN 18 mg/dL (7-18) 10/01/24 05:39 Creatinine 0.63 mg/dL (0.55-1.02) 10/01/24 05:39 Glucose 164 mg/dL (74-106) H 10/01/24 05:39 Phosphorus 2.0 mg/dL (2.5-4.9) L 10/01/24 05:39 Magnesium 1.9 mg/dL (1.6-2.4) 09/30/24 06:40 Total Bilirubin 0.6 mg/dL (0.2-1.0) 09/30/24 06:40 AST 25 U/L (15-37) 09/30/24 06:40 ALT 31 U/L (13-56) 09/30/24 06:40 Alkaline Phosphatase 138 U/L (45-117) H 09/30/24 06:40 Home Medications: Losartan/Hydrochlorothiazide [Losartan-Hctz 50-12.5 mg Tab] 1 tab PO DAILY 09/22/23 Omeprazole [Prilosec] 20 mg PO DAILY 09/22/23 Mometasone/Formoterol [Dulera 100 Mcg/5 Mcg Inhaler] 60 puff IH BID #1 inhaler 09/25/23 Albuterol Neb [Proventil 0.083% Neb Soln] 1 puff NEB QID 08/06/24 Albuterol Sulfate [Albuterol Sulfate Hfa] 1 puff IH Q4HR PRN 08/06/24 Aspirin 81 mg PO DAILY 08/06/24 Ipratropium [place] 1 puff IH QID 08/06/24 Albuterol Neb [Proventil 0.083% Neb Soln] 2.5 mg NEB [id number] amp 08/07/24 Nicotine [Nicoderm*] 21 mg TD Q24H #30 08/07/24 Thiamine HCl [Vitamin B-1*] 200 mg PO BID 30 Days #30 mg 08/07/24 chlordiazePOXIDE HCl [Librium*] 10 mg PO TID PRN 30 Days #90 cap 08/07/24 Benzonatate [Tessalon Perle*] 200 mg PO TID 10 Days #30 cap 10/01/24 Cefdinir [Cefdinir*] 300 mg PO BID 5 Days #10 cap 10/01/24 predniSONE [Prednisone*] 20 mg PO BID 5 Days #10 tab 10/01/24 New Medications: Cefdinir [Cefdinir*] 300 mg PO BID 5 Days #10 cap predniSONE [Prednisone*] 20 mg PO BID 5 Days #10 tab Benzonatate [Tessalon Perle*] 200 mg PO TID 10 Days #30 cap Physician Discharge Instructions: PROBLEM: COPD exacerbation GOAL: Clear understanding of disease process INSTRUCTIONS: Diet: Low sodium Activity: Fall precautions 53-year-old woman with a past medical history significant for COPD not on home oxygen, HTN, GERD, and HDL presented to the emergency room complaining of shortness of breath x 3 days. The patient states she has a history of COPD exacerbations, and her last one was in July 2024. She was treated with COPD exacerbation, room air sats 89 RA, patient refuses to wait on Home 02 to be arranged, she follow up PCP at 0800. DC medications, Cefdinir 1 po BID, x 5 days prednisione 1 po bid for 5 days She reports having neb/ inhalers at home Assessment COPD exacerbation-discharged home on prednisone 1 p.o. twice daily for 5 days, patient has nebulizers at home, Polycythemia vera, treated with therapeutic phlebotomy, will need to follow-up with hematology oncology outpatient for therapeutic phlebotomy Tobacco use educated on tobacco cessation discharge home with nicotine patch Alcohol use educate on alcohol cessation, Continue home medicines as previously prescribed GOAL: Clear understanding of disease process INSTRUCTIONS: Physician Discharge Instructions: -follow up with Dr Vazquez after discharge for theraputic phelobotomy Follow up with pulmomay after discharge -Follow-up with PCP in 1 to 2 weeks -Please call Dr. Mora at [phone] if any questions regarding hospital stay -Please call nursing station at [phone] if any nursing or medication questions -Return to the emergency room if symptoms worsen Diet: ADA, low sodium Activity: Fall precautions Diet: Low sodium Activity: Fall precautions Followup: Link Ovalle MD [ACTIVE - CAN ADMIT] - Yesenia Mg FNP [Primary Care Provider] - Time spent managing pt's care (in minutes): 45
--- NOTE | 2024-10-03 13:46 | EKG ---
Test Date: 2024-09-29 Test Time: 23:58:10 Tube Blower: JANETTE MEASUREMENT RESULTS: Intervals: Rate: 89 WI: 138 QRSD: 82 QT: 378 QTc: 459 [place]: P: 78 WI: 138 QRS: 79 T: 74 INTERPRETIVE STATEMENTS: Normal sinus rhythm Normal ECG Compared to ECG 08/05/2024 21:49:58 ST (T wave) deviation no longer present Electronically Signed On 10-03-24 13:38:30 [employer]ING[employer] CLEANER by Chacorta Hahn
--- NOTE | 2024-10-03 13:46 | EKG ---
Test Date: 2024-09-29 Test Time: 23:59:13 Law Researcher: JANETTE MEASUREMENT RESULTS: Intervals: Rate: 92 ME: 130 QRSD: 96 QT: 382 QTc: 472 [place]: P: 77 ME: 130 QRS: 76 T: 61 INTERPRETIVE STATEMENTS: Normal sinus rhythm Normal ECG Compared to ECG 08/05/2024 21:49:58 ST (T wave) deviation no longer present Electronically Signed On 10-03-24 13:38:28 [employer] ROUND BUTCHER by Chacorta Hahn
== END 2024-10-01 14:12 | disposition home or self-care (01) | DRG 190 ==
LOC: ER 22:17 → ERHOLD 09-30 02:42 → 2ND 09-30 13:34
PROVIDERS: ADMIT Hospitalist; ATTEND Hospitalist
DX: J44.1 Chronic obstructive pulmonary disease with (acute) exacerbation (principal); J96.01 Acute respiratory failure with hypoxia; I10 Essential (primary) hypertension; E78.5 Hyperlipidemia, unspecified; D53.9 Nutritional anemia, unspecified; D45 Polycythemia vera; K21.9 Gastro-esophageal reflux disease without esophagitis; F17.210 Nicotine dependence, cigarettes, uncomplicated; Z88.8 Allergy status to other drugs, medicaments and biological substances; Z11.52 Encounter for screening for COVID-19; Z79.82 Long term (current) use of aspirin; Z79.52 Long term (current) use of systemic steroids; Z79.899 Other long term (current) drug therapy; Z90.710 Acquired absence of both cervix and uterus
CPT/HCPCS: 36415; 71045; 80053; 80069; 82607; 83540; 83605; 83735; 83880; 84100; 84443; 85025; 85610; 85730; 87040; 87804; 87811; 93005; 94640; 94760; 96365; 96366; 96367; 96368; 96375; 99284; J0696; J1650; J1940; J2919; J3475; J7030; J7040; J7050; J7613; J7614; J7644